=== PATIENT | male | born 1940 | race Caucasian/White ===

== ENCOUNTER 2019-09-11 10:32 | Outpatient (CLI) | payer MEDICARE, SELFPAY ==
[2019-09-11 11:25] LABS: Prostate Specific Antigen 0.64 ng/mL (0-4)
[2019-09-11 11:48] LABS: Testosterone Total 351.3 ng/dL (193-740)
[2019-09-15 13:02] LABS: Testosterone, Free 37.5 pg/mL (6.0-73.0)
== END 2019-09-11 10:33 | disposition home or self-care (01) ==
LOC: LAB 10:37
PROVIDERS: Visit Provider Nurse Practitioner Family
DX: N52.9 Male erectile dysfunction, unspecified (principal)
CPT/HCPCS: 36415; 84153; 84402; 84403

== ENCOUNTER → 2019-11-24 09:21 | Outpatient (BNVA) | payer MEDICARE, SELFPAY | PROVIDERS: PCP Nurse Practitioner Family; Visit Provider Urology | DX: N52.9 Male erectile dysfunction, unspecified (principal); N39.9 Disorder of urinary system, unspecified | CPT/HCPCS: 81001 ==

== ENCOUNTER → 2020-02-23 15:10 | Outpatient (BNVA) | payer MEDICARE, SELFPAY | PROVIDERS: PCP Nurse Practitioner Family; Visit Provider Urology | DX: N52.1 Erectile dysfunction due to diseases classified elsewhere (principal); Z98.890 Other specified postprocedural states | CPT/HCPCS: 81001 ==

== ENCOUNTER 2020-03-18 18:48 | Emergency (ER) | payer MEDICARE, SELFPAY ==
[2020-03-18 18:50] VITALS: BP 161/98; PULSE 79; RESP 18; TEMP 36.7; O2SAT 96; BMI 26.5
--- NOTE | 2020-03-18 18:56 | CTR_ITS ---
PROCEDURE INFORMATION: Exam: CT Cervical Spine Without Contrast Exam date and time: 03/18/2020 7:18 PM Age: 80 years old Clinical indication: Injury or trauma; Initial encounter; Blunt trauma; Patient HX: 2x falls C/O KEENE and R sided neck pain TECHNIQUE: Imaging protocol: Computed tomography images of the cervical spine without contrast. Radiation optimization: All CT scans at this facility use at least one of these dose optimization techniques: automated exposure control; mA and/or kV adjustment per patient size (includes targeted exams where dose is matched to clinical indication); or iterative reconstruction. COMPARISON: MRI Cervical Spine w/o* [id number] 2015-10-19 09:24 RADIATION DOSE METRICS: Total DLP (mGy-cm): 662.09 FINDINGS: Vertebrae: Degenerative C7-T1 minimal anterolisthesis. Maintained cervical vertebral body heights. Fusion across the C2-C3 facets. Discs/Spinal canal/Neural foramina: Diffuse degenerative disc space loss with degenerative disc osteophyte complexes, facet arthropathy, and ligamentum flavum thickening causes up to moderate spinal and foraminal stenosis greatest at C4-C7. Soft tissues: Unremarkable. Lungs: Lung apices are normal. CT/CT cervical spin wo con* [id number] IMPRESSION: No acute findings. Radiation Dose CTDIVOL = (mGy): DLP = 662.09 (mGy-cm)
--- NOTE | 2020-03-18 18:56 | CTR_ITS ---
PROCEDURE INFORMATION: Exam: CT Head Without Contrast Exam date and time: 03/18/2020 7:18 PM Age: 80 years old Clinical indication: Injury or trauma; Initial encounter; Blunt trauma (contusions or hematomas); Without loss of consciousness; Patient HX: 2x falls C/O KEENE and R sided neck pain TECHNIQUE: Imaging protocol: Computed tomography of the head without contrast. Radiation optimization: All CT scans at this facility use at least one of these dose optimization techniques: automated exposure control; mA and/or kV adjustment per patient size (includes targeted exams where dose is matched to clinical indication); or iterative reconstruction. COMPARISON: CT head wo con* [id number] 2016-03-09 13:53 RADIATION DOSE METRICS: Total DLP (mGy-cm): 891.32 FINDINGS: Brain: Diffuse mild cerebral age related volume loss. Mild patchy low attenuation in the white matter compatible with mild chronic small vessel ischemic disease. No midline shift, mass, fluid collection, or evidence of hemorrhage. Ventricles: Ventricular enlargement proportional to volume loss. Bones/joints: Unremarkable. No acute fracture. Sinuses: Visualized sinuses are unremarkable. No fluid levels. Mastoid air cells: Visualized mastoid air cells are well aerated. Orbits: Unilateral right-sided cataract surgical changes. Left globe prosthesis. Soft tissues: Unremarkable. CT/CT head wo con* [id number] IMPRESSION: Mild involutional changes, no acute intracranial abnormality. Radiation Dose CTDIVOL = (mGy): DLP = 891.32 (mGy-cm)
--- NOTE | 2020-03-18 18:56 | CTR_ITS ---
PROCEDURE INFORMATION: Exam: CT Chest With Contrast Exam date and time: 03/18/2020 7:18 PM Age: 80 years old Clinical indication: Injury or trauma; Initial encounter; Ruq; Blunt trauma (contusions or hematomas); Patient HX: 2x falls C/O KEENE and R sided chest and abd pain TECHNIQUE: Imaging protocol: Computed tomography of the chest with intravenous contrast. Radiation optimization: All CT scans at this facility use at least one of these dose optimization techniques: automated exposure control; mA and/or kV adjustment per patient size (includes targeted exams where dose is matched to clinical indication); or iterative reconstruction. Contrast material: OMNI 300; Contrast volume: 95 ml; Contrast route: INTRAVENOUS (IV); COMPARISON: No relevant prior studies available. RADIATION DOSE METRICS: Total DLP (mGy-cm): 1511.06 FINDINGS: Lungs: Right apical pulmonary wedge resection. Pleural space: Right lung base pleural plaque. Heart: Unremarkable. No cardiomegaly. No pericardial effusion. Aorta: Unremarkable. No aortic aneurysm. Lymph nodes: Unremarkable. No enlarged lymph nodes. Bones/joints: Mild to moderate thoracic spondylosis with exaggeration of the thoracic kyphosis and associated degenerative endplate spurring and disc space loss. Hairline nondisplaced right lateral 8-10th rib fractures . Subtle nondisplaced right anterior 5-7th incomplete rib fractures. Soft tissues: Unremarkable. IMPRESSION: 1. Hairline nondisplaced right lateral 8-10th rib fractures . 2. Subtle nondisplaced right anterior 5-7th incomplete rib fractures. 3. Right lung base pleural plaque. PROCEDURE INFORMATION: Exam: CT Abdomen And Pelvis With Contrast Exam date and time: 03/18/2020 7:18 PM Age: 80 years old Clinical indication: Injury or trauma; Initial encounter; Ruq; Blunt trauma (contusions or hematomas); Patient HX: 2x falls C/O KEENE and R sided chest and abd pain TECHNIQUE: Imaging protocol: Computed tomography of the abdomen and pelvis with intravenous contrast. Radiation optimization: All CT scans at this facility use at least one of these dose optimization techniques: automated exposure control; mA and/or kV adjustment per patient size (includes targeted exams where dose is matched to clinical indication); or iterative reconstruction. Contrast material: OMNI 300; Contrast volume: 95 ml; Contrast route: INTRAVENOUS (IV); COMPARISON: No relevant prior studies available. RADIATION DOSE METRICS: Total DLP (mGy-cm): 1511.06 FINDINGS: Liver: 2 cm left hepatic lobe liver dome cyst. Gallbladder and bile ducts: Cholelithiasis. Pancreas: Normal. No ductal dilation. Spleen: Normal. No splenomegaly. Adrenals: Normal. No mass. Kidneys and ureters: Benign 4.5 cm left superior renal pole cyst. Nonobstructing 4 mm right renal calculus. Stomach and bowel: Mild colonic diverticulosis without evidence for acute diverticulitis. Appendix: No evidence of appendicitis. Intraperitoneal space: Unremarkable. No free air. No significant fluid collection. Vasculature: Unremarkable. No abdominal aortic aneurysm. Lymph nodes: Unremarkable. No enlarged lymph nodes. Bladder: Unremarkable as visualized. Reproductive: Unremarkable as visualized. Bones/joints: Couple chronic left-sided transverse spinous process fractures. Soft tissues: Small right inguinal fat protruding hernia. CT/CT chest abd pel w con* IMPRESSION: 1. Cholelithiasis. 2. Nonobstructing 4 mm right renal calculus. 3. Mild colonic diverticulosis without evidence for acute diverticulitis. COMMENTS: Consistent with the [employer]'s Incidental Findings Committee white paper (J Am Alo Radiol 2018): Any incidental renal lesion less than 1.0 cm or classified as too small to characterize, or any incidental cystic renal lesion characterized as simple-appearing, is likely benign. No follow-up imaging is recommended for these lesions per consensus recommendations based on imaging criteria. Radiation Dose CTDIVOL = (mGy): DLP = 1511.06~1511.06 (mGy-cm)
--- NOTE | 2020-03-18 18:57 | XRR_ITS ---
PROCEDURE INFORMATION: Exam: XR Chest, 1 View Exam date and time: 03/18/2020 6:58 PM Age: 80 years old Clinical indication: Injury or trauma; Fall; Initial encounter; Blunt trauma (contusions or hematomas) TECHNIQUE: Imaging protocol: XR of the chest Views: 1 view. COMPARISON: [place] Chest 1 [place] [id number] 2018-09-24 14:51 FINDINGS: Lungs: Unremarkable. No consolidation. Pleural space: Unremarkable. No pleural effusion. No pneumothorax. Heart/Mediastinum: Unremarkable. No cardiomegaly. Bones/joints: Unremarkable. XR/XR chest 1V portable [id number] IMPRESSION: No acute findings.
--- NOTE | 2020-03-18 19:04 | W.ED.FALL ---
HPI - Fall General: Chief Complaint: Fall Stated Complaint: FALL/ R SIDE PAIN Time Seen by Provider: 03/18/20 18:52 Source: patient, family and EMS Mode of arrival: EMS Limitations: no limitations History of Present Illness: HPI Narrative: Mr. Judd is a very nice 80-year-old male who comes in complaining of right-sided chest and abdominal pain. He also complains of headache and neck pain. The patient stumbled and fell landing on his right side earlier today. He is uncertain whether he had loss of consciousness but he states it is a possibility. He states he did not pass out before it but loses his balance easily with his Parkinson's disease. His confirms this. The patient has been trying to use a wrap around his chest but has pain in his chest and abdomen. He also has pain in his head and neck. He denies being on any blood thinners. Any type of movement makes his symptoms worse sitting still and the wrap makes them better. He denies any injuries to his extremities. He otherwise has no complaints. Associated symptoms-after fall: Reports abdominal pain, chest pain, headache(s) and neck pain; Denies confusion, difficulty walking, hematuria, lightheadedness or vertigo Review of Systems Const: Denies: fever(s), chills, body aches, fatigue, malaise or diaphoresis Eyes: Denies: change in vision, blurry vision, photophobia, eye discomfort, eye discharge or eye redness ENMT: Denies: throat pain, odynophagia, hoarseness, swelling of lips/tongue, ear or mastoid pain, ear discharge, change in hearing or nasal discharge Card: Reports: chest pain; Denies: palpitations, irregular heart rhythm, edema, lightheadedness, syncope, pre-syncope, dyspnea on exertion or orthopnea Resp: Denies: dyspnea, productive cough, non-productive cough, wheezing, hemoptysis or chest congestion GI: Reports: abdominal pain; Denies: nausea, vomiting, hematemesis, coffee ground emesis, heartburn, diarrhea, constipation, GI cramping, hematochezia or melena : Denies: flank pain, dysuria, urinary frequency, urinary urgency or hematuria Musc: Reports: neck pain; Denies: back pain, extremity pain, extremity swelling, joint pain, joint swelling, joint redness, joint warmth or joint stiffness Skin/Breast: Denies: rash, pruritus, erythema or skin tenderness Neuro: Reports: headache(s); Denies: numbness in extremities, weakness in extremities, sensory changes, lack of coordination, difficulty walking, dizziness, vertigo, confusion, Slurred speech present or seizure-like activity Vaughn/Lymph: Denies: easy bruising, easy bleeding, petechiae, purpura or enlarged lymph nodes All/Imm: Denies: urticaria, throat swelling, tongue swelling, facial swelling or acute wheezing PFSH ED PFSH: Medical History Blindness Detached retina Erectile dysfunction Parkinson disease Stroke Surgical History H/O transurethral destruction of bladder lesion Family History Father , 70 CAD (coronary artery disease) Stroke Mother , 84 Stroke Social History Smoking and tobacco status: former smoker Alcohol intake: never Marital status: Life Partner Current occupational status: retired History of recent travel: No Physical Exam Const: COMMON NORMALS: no acute distress, patient oriented x3, no limitations, healthy appearing and well nourished GENERAL APPEARANCE: cooperative, well kempt and well developed HENMT: COMMON NORMALS: normocephalic, atraumatic, external ears normal, EAC's normal and Normal external nose present HEAD & SCALP: normal to inspection, normocephalic and atraumatic FACE & SINUS: normal facial exam and face symmetric NOSE: Normal external nose present and Normal nares present EXTERNAL EAR: Yes external ears normal EXTERNAL AUDITORY CANAL: EAC's normal MOUTH: Normal oral and palatal mucosa present, lip normal and tongue normal Eye: COMMON NORMALS: Equal, round and reactive pupils present and conjunctivae normal GENERAL EYE: appearance normal, both eyes and all related structures ALIGNMENT: Yes alignment normal PERIORBITAL: periorbital findings normal EYELID: eyelids normal CONJUNCTIVA: Yes conjunctivae normal SCLERA: sclerae normal PUPIL: Yes Equal, round and reactive pupils present Neck/C-Spine: COMMON NORMALS: full ROM, no lymphadenopathy, supple, no meningeal signs and no JVD GENERAL: Yes normal visual inspection and Yes trachea midline Chest: OTHER: Tenderness to palpation along the right lateral chest and upper abdomen Resp: COMMON NORMALS: normal respiratory effort, No retractions, No use of accessory muscles and clear to auscultation bilaterally EFFORT & INSPECTION: Yes able to speak in complete sentences and Yes symmetric chest movement AUSCULTATION: clear to auscultation bilaterally, no crackles, no rales, no rhonchi and no wheezes Cardio: COMMON NORMALS: no JVD, regular rate, regular rhythm, S1 normal heart sound present and S2 normal heart sound present RATE: regular rate RHYTHM: regular rhythm HEART SOUNDS: S1 normal heart sound present, S2 normal heart sound present, no click, no gallops, no murmurs, no rubs and abnormal split S2 GI: COMMON NORMALS: Soft to palpation and No hepatosplenomegaly present PALPATION: Yes Soft to palpation, Yes Tenderness to palpation present (GI) (Pain on palpation along the right abdomen.), No Guarding due to palpation present (GI), No Rigid due to palpation, Yes No hepatosplenomegaly present, No Hernia present, No Palpable mass present and No Pulsatile mass present : COMMON NORMALS: Yes no CVA tenderness BLADDER/KIDNEY EXAM: Yes no CVA tenderness Back/Pelvis: COMMON NORMALS: no CVA tenderness, thoracic and lumbar spine normal to inspection, no thoracic nor lumbar tenderness and thoraco-lumbar ROM normal Extremity: COMMON NORMALS: normal to inspection, full ROM, capillary refill normal, no joint enlargement, no clubbing, cyanosis or edema and no calf tenderness Neuro: COMMON NORMALS: patient oriented x3, CN's II-XII intact bilaterally, moves all extremities, no focal motor deficits and no sensory deficits noted MENINGEAL SIGNS: Yes no meningeal signs SPEECH: speech normal Psych: COMMON NORMALS: mental status grossly normal, Normal thought process present, cooperative, normal affect, speech normal and activity/motor behavior normal APPEARANCE: Yes well kempt SPEECH: Yes normal speech THOUGHT PROCESS: Normal thought process present Skin: COMMON NORMALS: no rashes or lesions noted, turgor normal, no jaundice, no petechiae and no mottling GENERAL SKIN EXAM: no rashes or lesions noted and turgor normal Course Vital Signs: Vital signs: Vital Signs Temperature 98.1 F 03/18/20 18:50 Pulse Rate 72 08/14/20 23:31 Respiratory Rate 16 03/18/20 23:31 Blood Pressure 140/91 03/18/20 23:31 Pulse Oximetry 95 03/18/20 23:31 MDM - Fall MDM Narrative: Medical decision making narrative: Mr. Judd is a nice 80-year-old male who comes in complaining of chest and abdominal pain after a fall. The patient has 6 rib fractures but not in a flail type segment. There is no sign of flail segment on exam. His pain is well controlled at this time and the rib fractures themselves are not displaced. I have reviewed with him and his at length the risks of complication and this being a risk factor for problems from this trauma. Nonetheless they choose to go home. I will send him home with an incentive spirometer, [employer] and they agree to follow-up with her doctor immediately. They state they live very close by to the hospital and will return here immediately if their symptoms worsen. They understand they are welcome to return if they simply change their mind. Lab Data: Attestation: I reviewed the patient's lab results. Labs: Lab Results 03/18/20 03/18/20 03/18/20 Range/Units 19:01 19:01 19:01 WBC 7.4 (4.0-10.0) 10^3/ uL RBC 4.82 (4.1-5.3) 10^6/u L Hgb 14.0 (11.7-16.6) g/dL Hct 45.6 (42.0-52.0) % MCV 94.6 H (80-94) fL MCH 29.0 (28.0-34.0) pg MCHC 30.7 (30.0-36.0) g/dL RDW 13.5 (12.1-15.1) % Plt Count 218 (130-400) 10^3/c mm MPV 9.7 (7.4-10.4) fL Neut % (Auto) 57.9 % Lymph % (Auto) 31.0 % Gosper % (Auto) 7.2 % Eos % (Auto) 3.1 % Baso % (Auto) 0.5 % Neut # (Auto) 4.25 (1.8-7.7) 10^3/u L Lymph # (Auto) 2.3 (0.8-4.8) 10^3/u L Gosper # (Auto) 0.5 (0.2-0.9) 10^3/u L Eos # (Auto) 0.2 (0.0-0.8) 10^3/u L Baso # (Auto) 0.0 (0.0-0.1) 10^3/u L Nucleated RBC % (a uto) 0 % Nucleated RBCs # 0.0 /100WBC PT 12.20 (12.1-14.9) SECO NDS INR 0.88 (0.8-1.2) Sodium 138 (136-145) mmol/L Potassium 4.3 (3.5-5.1) mmol/L Chloride 104 (98-107) mmol/L Carbon Dioxide 27 (22-29) mmol/L Anion Gap 11.3 (5-19) BUN 20 (8-23) mg/dL Creatinine 1.0 (0.7-1.2) mg/dL GFR Calculation Not Reportable Glucose 129 H (65-115) mg/dL Calculated Osmolal ity 284 L (285-295) mOsm/k g Calcium 9.0 (8.5-10.5) mg/dL Total Bilirubin 0.2 (0.15-1.2) mg/dL AST 20 (0-40) U/L ALT 15 (0-41) U/L Alkaline Phosphata se 79 (40-130) IU/L Total Protein 6.9 (6.6-8.7) g/dL Albumin 4.2 (3.5-5.2) g/dL Globulin 2.7 (1.3-4.6) g/dL Urine Color (Yellow) Urine Appearance (CLEAR) Urine pH (5-7) Ur Specific Gravit y (1.005-1.030) Urine Protein (Negative) Urine Glucose (UA) (Normal) Urine Ketones (Negative) Urine Blood (Negative) Urine Nitrate (Negative) Urine Bilirubin (NEGATIVE) Urine Urobilinogen (Negative) mg/dL Ur Leukocyte Naomi ase (Negative) 03/18/20 Range/Units 20:35 WBC (4.0-10.0) 10^3/ uL RBC (4.1-5.3) 10^6/u L Hgb (11.7-16.6) g/dL Hct (42.0-52.0) % MCV (80-94) fL MCH (28.0-34.0) pg MCHC (30.0-36.0) g/dL RDW (12.1-15.1) % Plt Count (130-400) 10^3/c mm MPV (7.4-10.4) fL Neut % (Auto) % Lymph % (Auto) % Gosper % (Auto) % Eos % (Auto) % Baso % (Auto) % Neut # (Auto) (1.8-7.7) 10^3/u L Lymph # (Auto) (0.8-4.8) 10^3/u L Gosper # (Auto) (0.2-0.9) 10^3/u L Eos # (Auto) (0.0-0.8) 10^3/u L Baso # (Auto) (0.0-0.1) 10^3/u L Nucleated RBC % (a uto) % Nucleated RBCs # /100WBC PT (12.1-14.9) SECO NDS INR (0.8-1.2) Sodium (136-145) mmol/L Potassium (3.5-5.1) mmol/L Chloride (98-107) mmol/L Carbon Dioxide (22-29) mmol/L Anion Gap (5-19) BUN (8-23) mg/dL Creatinine (0.7-1.2) mg/dL GFR Calculation Glucose (65-115) mg/dL Calculated Osmolal ity (285-295) mOsm/k g Calcium (8.5-10.5) mg/dL Total Bilirubin (0.15-1.2) mg/dL AST (0-40) U/L ALT (0-41) U/L Alkaline Phosphata se (40-130) IU/L Total Protein (6.6-8.7) g/dL Albumin (3.5-5.2) g/dL Globulin (1.3-4.6) g/dL Urine Color Yellow (Yellow) Urine Appearance Clear (CLEAR) Urine pH 6 (5-7) Ur Specific Gravit y 1.015 (1.005-1.030) Urine Protein Neg (Negative) Urine Glucose (UA) Norm (Normal) Urine Ketones Negative (Negative) Urine Blood Neg (Negative) Urine Nitrate Negative (Negative) Urine Bilirubin Neg (NEGATIVE) Urine Urobilinogen Norm (Negative) mg/dL Ur Leukocyte Naomi ase Negative (Negative) Imaging Data^: CXR: Attestation: I personally reviewed and interpreted this imaging study as follows: My impression: No acute pneumothorax or hemothorax. Evidence of 2 adjacent rib fractures noted. CT Head: Radiologist's impression: [address] [address] [address] Scan Report Signed Patient: Ariana Judd Unit #: [id number] : 1940 Age/Sex: 80 / M ADM Date: 03/18/20 Loc: ER Room/Bed: Attending Dr: Ordering Provider/Ordering MD: Naomy Michel DO Date of Service: 03/18/20 Procedure(s): CT head wo con* [id number] Accession Number(s): [id number] Report Number: [id number] PROCEDURE INFORMATION: Exam: CT Head Without Contrast Exam date and time: 03/18/2020 7:18 PM Age: 80 years old Clinical indication: Injury or trauma; Initial encounter; Blunt trauma (contusions or hematomas); Without loss of consciousness; Patient HX: 2x falls C/O KEENE and R sided neck pain TECHNIQUE: Imaging protocol: Computed tomography of the head without contrast. Radiation optimization: All CT scans at this facility use at least one of these dose optimization techniques: automated exposure control; mA and/or kV adjustment per patient size (includes targeted exams where dose is matched to clinical indication); or iterative reconstruction. COMPARISON: CT head wo con* [id number] 2016-03-09 13:53 RADIATION DOSE METRICS: Total DLP (mGy-cm): 891.32 FINDINGS: Brain: Diffuse mild cerebral age related volume loss. Mild patchy low attenuation in the white matter compatible with mild chronic small vessel ischemic disease. No midline shift, mass, fluid collection, or evidence of hemorrhage. Ventricles: Ventricular enlargement proportional to volume loss. Bones/joints: Unremarkable. No acute fracture. Sinuses: Visualized sinuses are unremarkable. No fluid levels. Mastoid air cells: Visualized mastoid air cells are well aerated. Orbits: Unilateral right-sided cataract surgical changes. Left globe prosthesis. Soft tissues: Unremarkable. CT/CT head wo con* [id number] IMPRESSION: Mild involutional changes, no acute intracranial abnormality. Radiation Dose CTDIVOL = (mGy): DLP = 891.32 (mGy-cm) Dictated By: Zach Hernandes MD Signed By: Zach Hernandes MD Signed Date/Time: 03/18/202019 DD/ 17 CT Cervical Spine: Radiologist's impression: [address] [address] [address] Scan Report Signed Patient: Ariana Judd Unit #: [id number] : 1940 Age/Sex: 80 / M ADM Date: 03/18/20 Loc: ER Room/Bed: Attending Dr: Ordering Provider/Ordering MD: Naomy Michel DO Date of Service: 03/18/20 Procedure(s): CT cervical spin wo con* [id number] Accession Number(s): [id number] Report Number: [id number] PROCEDURE INFORMATION: Exam: CT Cervical Spine Without Contrast Exam date and time: 03/18/2020 7:18 PM Age: 80 years old Clinical indication: Injury or trauma; Initial encounter; Blunt trauma; Patient HX: 2x falls C/O KEENE and R sided neck pain TECHNIQUE: Imaging protocol: Computed tomography images of the cervical spine without contrast. Radiation optimization: All CT scans at this facility use at least one of these dose optimization techniques: automated exposure control; mA and/or kV adjustment per patient size (includes targeted exams where dose is matched to clinical indication); or iterative reconstruction. COMPARISON: MRI Cervical Spine w/o* [id number] 2015-10-19 09:24 RADIATION DOSE METRICS: Total DLP (mGy-cm): 662.09 FINDINGS: Vertebrae: Degenerative C7-T1 minimal anterolisthesis. Maintained cervical vertebral body heights. Fusion across the C2-C3 facets. Discs/Spinal canal/Neural foramina: Diffuse degenerative disc space loss with degenerative disc osteophyte complexes, facet arthropathy, and ligamentum flavum thickening causes up to moderate spinal and foraminal stenosis greatest at C4-C7. Soft tissues: Unremarkable. Lungs: Lung apices are normal. CT/CT cervical spin wo con* [id number] IMPRESSION: No acute findings. Radiation Dose CTDIVOL = (mGy): DLP = 662.09 (mGy-cm) Dictated By: Zach Hernandes MD Signed By: Zach Hernandes MD Signed Date/Time: 03/18/202020 DD/ 18 Discharge Plan Discharge Patient Disposition: Home Clinical Impression: Fracture, ribs Qualifiers: Encounter type: initial encounter Rib fracture type: multiple ribs Fracture type: closed Laterality: right Qualified Code(s): S22.41XA - Multiple fractures of ribs, right side, initial encounter for closed fracture Condition: Stable Prescriptions: [place] 5-325 mg tablet 1 tab PO Q6H PRN (Reason: pain) 5 Days Qty: 20 RF: 0 Zofran 4 mg tablet 4 mg PO Q6H PRN (Reason: nausea and vomiting) Qty: 20 RF: 0 No Action Ocuvite Eye Health 50 mg-15 unit- 4.5 mg-2.5 mg tablet,chewable 2 tab PO DAILY RF: 0 topiramate 50 mg capsule,extended release 24hr 50 mg PO DAILY RF: 0 PreserVision AREDS [id number] capsule 1 cap PO BID RF: 0 naproxen sodium 220 mg capsule 220 mg PO BID PRN (Reason: Pain) RF: 0 aspirin [Adult Aspirin Regimen] 81 mg tablet,delayed release (DR/EC) 81 mg PO DAILY RF: 0 gabapentin 300 mg capsule 300 mg PO DAILY RF: 0 omeprazole 20 mg capsule,delayed release(DR/EC) 20 mg PO DAILY RF: 0 prednisolone 5 mg tablet 5 mg PO DAILY RF: 0 venlafaxine 150 mg capsule,extended release 24hr 150 mg PO DAILY RF: 0 zinc 50 mg tablet 50 mg PO DAILY RF: 0 vitamin E 200 unit capsule 200 unit PO DAILY RF: 0 carbidopa-levodopa 25-100 mg tablet 1 tab PO BID RF: 0 Combigan 0.2-0.5 % drops 1 drop ophthalmic (eye) BID RF: 0 sildenafil 100 mg tablet 100 mg PO DAILY PRN (Reason: sexual activity) Qty: 30 RF: 12 clonazepam 1 mg tablet 1 mg PO DAILY Qty: 30 RF: 2 Discharge Orders: Discharge Order (Routine); Ordered 03/18/20 Ordered By: Naomy Michel Referrals: Kulwinder Lane NP [Primary Care Provider] - 1-3 days Discharge Diet: Advance as tolerated Discharge Activity: Limit activity as instructed Patient Instructions: Fractures - Rib Activity Restrictions/Additional Instructions: Please return to the ER immediately for any of the signs or symptoms listed on your discharge instruction sheets, worsening/changing of your symptoms, you are not getting better as quickly as expected, or for ANY other cause or concerns. I have offered to admit you to the hospital as I have informed you that multiple rib fractures can be a complicating factor and preclude to pneumonia and other problems. You have declined this but understand you are more than welcome to return to the ER if your pain is uncontrolled, your pain gets worse, you simply change your mind, or you have any other concerns. Use the incentive spirometer given you and use it every hour while you are home. Be certain to follow-up with Mr. Ron on Saturday for recheck. Again if you have any symptoms at all please return to the ER immediately for recheck. 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
[2020-03-18 19:08] LABS: Basophils % 0.5 %; Eosinophils # 0.2 10^3/uL (0.0-0.8); Eosinophils % 3.1 %; Hematocrit 45.6 % (42.0-52.0); Lymphocytes # 2.3 10^3/uL (0.8-4.8); Mean Corpuscular HGB Conc 30.7 g/dL (30.0-36.0); Mean Corpuscular Volume 94.6 fL (80-94); Mean Platelet Volume 9.7 fL (7.4-10.4); Monocytes # 0.5 10^3/uL (0.2-0.9); Monocytes % 7.2 %; Neutrophils # 4.25 10^3/uL (1.8-7.7); Neutrophils % 57.9 %; Nucleated Red Blood Cells % 0 %; Platelet Count 218 10^3/cmm (130-400); Red Blood Count 4.82 10^6/uL (4.1-5.3); Red Cell Distribution Width 13.5 % (12.1-15.1); White Blood Count 7.4 10^3/uL (4.0-10.0)
[2020-03-18] MEDS: sodium chloride 0.9% 1,000 ML 999 ML IV (19:19)
[2020-03-18 19:20] VITALS: RESP 16; O2SAT 97
[2020-03-18 19:20] LABS: INR 0.88 (0.8-1.2)
[2020-03-18] MEDS: ondansetron 2 mg/ML SDV 2 mL 4 MG IVP (19:20)
[2020-03-18] MEDS: morphine 4 mg/mL SDV 1 mL IVP ×2 (19:20→23:28)
[2020-03-18 19:25] LABS: Alanine Aminotransferase 15 U/L (0-41); Albumin Level 4.2 g/dL (3.5-5.2); Alkaline Phosphatase 79 IU/L (40-130); Anion Gap 11.3 (5-19); Aspartate Amino Transferase 20 U/L (0-40); Blood Urea Nitrogen 20 mg/dL (8-23); Carbon Dioxide 27 mmol/L (22-29); Chloride 104 mmol/L (98-107); Globulin 2.7 g/dL (1.3-4.6); Glucose 129 mg/dL (65-115); Osmolality Calculated 284 mOsm/kg (285-295); Potassium 4.3 mmol/L (3.5-5.1); Sodium 138 mmol/L (136-145); Total Bilirubin 0.2 mg/dL (0.15-1.2); Total Protein 6.9 g/dL (6.6-8.7)
[2020-03-18 19:26] VITALS: BP 135/82; PULSE 71; RESP 16; O2SAT 95
[2020-03-18] MEDS: iohexol 300 mg/mL 100 mL Btl IV (19:56)
[2020-03-18 20:00] VITALS: BP 124/94; PULSE 65; RESP 16; O2SAT 95
[2020-03-18] MEDS: sodium chloride 0.9% 1,000 ML 100 ML IV (20:51)
[2020-03-18 20:55] LABS: Add Urine Microscopic? NO
[2020-03-18 20:59] LABS: Bilirubin Urine Neg (NEGATIVE); Blood Urine Neg (Negative); Glucose Urine UA Norm (Normal); Ketones Urine Negative (Negative); Leukocyte Esterase Urine Negative (Negative); Nitrate Urine Negative (Negative); Protein Urine Neg (Negative); Specific Gravity, Urine 1.015 (1.005-1.030); Urine Appearance Clear (CLEAR); Urine Color Yellow (Yellow); Urobilinogen Urine Norm (Negative); pH Urine 6 (5-7)
[2020-03-18] MEDS: HYDROcodone-acetaminophen 5-325 mg Tablet 4 TAB PO (23:27)
[2020-03-18 23:28] VITALS: RESP 16
[2020-03-18 23:31] VITALS: BP 140/91; PULSE 72; RESP 16; O2SAT 95
== END 2020-03-18 23:42 | disposition home or self-care (01) ==
PROVIDERS: Emergency Provider Emergency Medicine; PCP Nurse Practitioner Family
DX: S22.41XA Multiple fractures of ribs, right side, initial encounter for closed fracture (principal); Z79.82 Long term (current) use of aspirin; G20 Parkinson's disease; Z86.73 Personal history of transient ischemic attack (TIA), and cerebral infarction without residual deficits; Z87.891 Personal history of nicotine dependence; W01.0XXA Fall on same level from slipping, tripping and stumbling without subsequent striking against object, initial encounter
CPT/HCPCS: 12345; 36415; 70450; 71045; 71260; 72125; 74177; 80053; 81003; 85025; 85610; 96360; 96361; 96374; 96375; 96376; 99283; 99284; J2270; J2405; J7030; Q9967

== ENCOUNTER 2020-07-06 12:00 | Outpatient (CLI) | payer MEDICARE, SELFPAY ==
--- NOTE | 2020-07-06 12:17 | XR_ITS ---
WS: [id number] Lumbar spine, 3 views, 07/06/2020 Clinical Data: LOW BACK PAIN Comparison: Lumbar spine, 03/25/2015. Findings: There is an anterolisthesis of 0.4 cm of L4 on L5 unchanged. There is disc space narrowing at L4-L5 a nd L5-S1. No compression fractures are seen. There is a dextroscoliosis. The transverse processes and SI joints are normal. There is a large amount of fecal material throughout the colon. XR/XR lumbar spine 2-3V* [id number] Impression: 1. Dextroscoliosis. 2. L4-L5 anterolisthesis is 0.4 cm. 3. Degenerative disc disease at L4-L5 and L5-S1.
--- NOTE | 2020-07-06 12:17 | XR_ITS ---
WS: [id number] Left hip, AP and frog-leg views, 07/06/2020 Clinical Data: LEFT HIP PAIN Comparison: None. Findings: No fractures or dislocations are seen. The hip joint is intact. The soft tissues are not remarkable. The adjacent pelvis is normal. The left SI joint and pubic symphysis are not remarkable. XR/XR hip LT 2-3V wo/w pel* [id number] Impression: Negative left hip.
== END 2020-07-06 12:01 | disposition home or self-care (01) ==
PROVIDERS: PCP Nurse Practitioner Family; Visit Provider Nurse Practitioner Family
DX: M25.552 Pain in left hip (principal); M41.86 Other forms of scoliosis, lumbar region; M51.36 Other intervertebral disc degeneration, lumbar region; M51.37 Other intervertebral disc degeneration, lumbosacral region
CPT/HCPCS: 72100; 73502

== ENCOUNTER 2020-11-28 10:34 | Outpatient (CLI) | payer MEDICARE, SELFPAY ==
--- NOTE | 2020-11-28 10:42 | XR_ITS ---
WS: [id number] Exam: XR shoulder RT min 2V* [id number] Date/Time of Exam: 11/28/2020 10:42 AM Reason For Exam: RIGHT SHOULDER PAIN Comparison 04/08/2014. No fracture or dislocation noted. Degenerative changes of the glenohumeral joint. Normal soft tissues . Surgical sutures superimpose the apex of the left lung. XR/XR shoulder RT min 2V* [id number] IMPRESSION: 1. Degenerative change of the glenohumeral joint. No other significant finding.
== END 2020-11-28 10:35 | disposition home or self-care (01) ==
PROVIDERS: PCP Nurse Practitioner Family; Visit Provider Internal Medicine
DX: M25.511 Pain in right shoulder (principal)
CPT/HCPCS: 73030

== ENCOUNTER → 2020-12-07 15:03 | Outpatient (BNVA) | payer MEDICARE, SELFPAY | PROVIDERS: PCP Nurse Practitioner Family; Visit Provider Specialist | DX: I69.354 Hemiplegia and hemiparesis following cerebral infarction affecting left non-dominant side (principal); R27.0 Ataxia, unspecified; G62.9 Polyneuropathy, unspecified; M31.6 Other giant cell arteritis; G43.711 Chronic migraine without aura, intractable, with status migrainosus; H54.7 Unspecified visual loss; Z87.891 Personal history of nicotine dependence; R20.0 Anesthesia of skin; R20.2 Paresthesia of skin | CPT/HCPCS: 36415; 80053; 82607; 84443; 85025; 99215 ==

== ENCOUNTER 2020-12-07 16:39 | Outpatient (CLI) | payer MEDICARE, SELFPAY ==
[2020-12-07 17:05] LABS: Basophils % 0.2 %; Eosinophils % 0.3 %; Hematocrit 43.7 % (42.0-52.0); Hemoglobin 13.9 g/dL (11.7-16.6); Lymphocytes # 2.2 10^3/uL (0.8-4.8); Lymphocytes % 16.6 %; Mean Corpuscular HGB Conc 31.8 g/dL (30.0-36.0); Mean Corpuscular Volume 91.2 fL (80-94); Mean Platelet Volume 9.4 fL (7.4-10.4); Monocytes # 0.8 10^3/uL (0.2-0.9); Monocytes % 6.4 %; Neutrophils # 9.97 10^3/uL (1.8-7.7); Nucleated Red Blood Cells % 0 %; Platelet Count 233 10^3/cmm (130-400); Red Blood Count 4.79 10^6/uL (4.1-5.3); Red Cell Distribution Width 14.5 % (12.1-15.1); White Blood Count 13.1 10^3/uL (4.0-10.0)
[2020-12-07 17:59] LABS: Alanine Aminotransferase 15 U/L (0-41); Albumin Level 4.2 g/dL (3.5-5.2); Alkaline Phosphatase 98 IU/L (40-130); Anion Gap 14.3 (5-19); Aspartate Amino Transferase 16 U/L (0-40); Blood Urea Nitrogen 20 mg/dL (8-23); Calcium 9.2 mg/dL (8.5-10.5); Carbon Dioxide 23 mmol/L (22-29); Chloride 105 mmol/L (98-107); Globulin 2.5 g/dL (1.3-4.6); Glucose 103 mg/dL (65-115); Osmolality Calculated 289 mOsm/kg (285-295); Potassium 4.3 mmol/L (3.5-5.1); Sodium 138 mmol/L (136-145); Total Bilirubin 0.3 mg/dL (0.15-1.2); Total Protein 6.7 g/dL (6.6-8.7); Vitamin B12 852 pg/mL (232-1245)
[2020-12-07 19:44] LABS: Thyroid Stimulating Hormone 0.47 uIU/mL (0.27-4.20)
== END 2020-12-07 16:40 | disposition home or self-care (01) ==
PROVIDERS: PCP Internal Medicine; Visit Provider Specialist
DX: R27.0 Ataxia, unspecified (principal); R20.0 Anesthesia of skin; R20.2 Paresthesia of skin
CPT/HCPCS: 36415; 80053; 82607; 84443; 85025

== ENCOUNTER 2020-12-21 10:47 | Outpatient (RCR) | payer MEDICARE, SELFPAY | END 2021-01-02 23:59 | disposition home or self-care (01) | LOC: SPT 10:47 | PROVIDERS: PCP Internal Medicine; Referring Provider Specialist; Visit Provider Specialist | DX: R27.0 Ataxia, unspecified (principal) | CPT/HCPCS: 97110; 97161 ==

== ENCOUNTER 2020-12-27 07:01 | Outpatient (CLI) | payer MEDICARE, SELFPAY ==
--- NOTE | 2020-12-27 07:15 | MR_ITS ---
WS: [id number] MRI BRAIN WITHOUT CONTRAST HISTORY: I63.9 - Cerebral infarction, unspecified COMPARISON: 10/19/2015 TECHNIQUE: Diffusion imaging, multiplanar T1, T2 and FLAIR imaging obtained. No evidence for acute infarct or hemorrhage. Payton-white matter differentiation is normal. There are a few scattered T2 and FLAIR sequence hyperintensities from chronic microvascular ischemic disease. Pr eviously described LEFT temporal lobe hyperintensity on the T2 sequences is not as well seen today se condary to motion. Very mild atrophy. Ventricles and extra-axial spaces are normal. No inferior displacement of cerebellar tonsils. The sella turcica and pituitary gland are unremarkabl e. Posterior fossa is also unremarkable. Dural venous sinuses and [place] demonstrate no abnormality on this unenhanced studies. Paranasal sinuses: Clear. Mastoid air cells: Normal. Calvarium and scalp: Intact. MR/MR head wo con* [id number] IMPRESSION: 1. No acute infarct. 2. Mild atrophy and mild chronic microvascular ischemic disease. 3. Study is slightly limited by motion artifact.
== END 2020-12-27 07:02 | disposition home or self-care (01) ==
LOC: RADSHAW 07:03
PROVIDERS: PCP Internal Medicine; Visit Provider Specialist
DX: I63.9 Cerebral infarction, unspecified (principal); I67.82 Cerebral ischemia; G31.9 Degenerative disease of nervous system, unspecified
CPT/HCPCS: 70551; 99215

== ENCOUNTER 2021-01-03 06:00 | Outpatient (RCR) | payer MEDICARE, SELFPAY | END 2021-02-01 23:59 | disposition home or self-care (01) | LOC: SPT 06:00 | PROVIDERS: PCP Internal Medicine; Referring Provider Specialist; Visit Provider Specialist | DX: R27.0 Ataxia, unspecified (principal) | CPT/HCPCS: 97110 ==

== ENCOUNTER → 2021-02-20 14:21 | Outpatient (BNVA) | payer MEDICARE, SELFPAY | PROVIDERS: PCP Internal Medicine; Visit Provider Specialist | DX: G62.9 Polyneuropathy, unspecified (principal); G20 Parkinson's disease | CPT/HCPCS: 99214 ==

== ENCOUNTER 2021-02-22 06:00 | Outpatient (RCR) | payer MEDICARE, SELFPAY | END 2021-03-04 23:59 | disposition home or self-care (01) | LOC: SPT 06:00 | PROVIDERS: PCP Internal Medicine; Referring Provider Specialist; Visit Provider Specialist | DX: M25.511 Pain in right shoulder (principal) | CPT/HCPCS: 97161 ==

== ENCOUNTER 2021-03-05 06:00 | Outpatient (RCR) | payer MEDICARE, SELFPAY | END 2021-03-22 23:59 | disposition home or self-care (01) | LOC: SPT 06:00 | PROVIDERS: PCP Internal Medicine; Referring Provider Nurse Practitioner Family; Visit Provider Nurse Practitioner Family | DX: M25.511 Pain in right shoulder (principal) | CPT/HCPCS: 97110 ==

== ENCOUNTER → 2021-04-04 08:10 | Outpatient (BNVA) | payer MEDICARE, SELFPAY | PROVIDERS: PCP Internal Medicine; Visit Provider Urology | DX: N52.1 Erectile dysfunction due to diseases classified elsewhere (principal) | CPT/HCPCS: 81003 ==

== ENCOUNTER → 2021-06-07 09:25 | Outpatient (BNVA) | payer MEDICARE, SELFPAY | PROVIDERS: PCP Internal Medicine; Referring Provider Internal Medicine; Visit Provider Specialist | DX: M25.511 Pain in right shoulder (principal) | CPT/HCPCS: 73030 ==

== ENCOUNTER → 2021-12-21 08:23 | Outpatient (BNVA) | payer MEDICARE, SELFPAY | PROVIDERS: PCP Family Medicine; Visit Provider Specialist | DX: M75.81 Other shoulder lesions, right shoulder (principal) | CPT/HCPCS: 20610; J1100; J2795; J3301 ==

== ENCOUNTER → 2022-01-02 13:14 | Outpatient (BNVA) | payer MEDICARE, SELFPAY | PROVIDERS: PCP Family Medicine; Visit Provider Specialist | DX: G20 Parkinson's disease (principal); G62.9 Polyneuropathy, unspecified; G43.711 Chronic migraine without aura, intractable, with status migrainosus | CPT/HCPCS: 99214 ==

== ENCOUNTER → 2022-03-22 07:58 | Outpatient (BNVA) | payer MEDICARE, SELFPAY | PROVIDERS: PCP Family Medicine; Visit Provider Specialist | DX: M19.011 Primary osteoarthritis, right shoulder (principal); M75.81 Other shoulder lesions, right shoulder | CPT/HCPCS: 20610; J1100; J2795; J3301 ==

== ENCOUNTER → 2022-04-04 13:11 | Outpatient (BNVA) | payer MEDICARE, SELFPAY | PROVIDERS: PCP Family Medicine; Visit Provider Specialist | DX: G25.0 Essential tremor (principal); G62.9 Polyneuropathy, unspecified; H54.7 Unspecified visual loss; G43.711 Chronic migraine without aura, intractable, with status migrainosus; F41.9 Anxiety disorder, unspecified; G47.52 REM sleep behavior disorder | CPT/HCPCS: 99214 ==

== ENCOUNTER 2022-06-07 15:04 | Outpatient (CLI) | payer MEDICARE, SELFPAY ==
--- NOTE | 2022-06-07 15:14 | CT_ITS ---
WS: [id number] CT HEAD TECHNIQUE: Noncontrast CT of the head obtained from the skullbase to the vertex. CLINICAL INFORMATION: HISTORY OF STROKE,UNSPECIFIED FALL COMPARISON: March 18, 2020 and 2020 DLP: 1120.[address] scans at [facility] use at least one of these dose optimization techniques: automated e xposure control; mA and/or kV adjustment per patient size (includes targeted exams where dose is matc hed to clinical indication); or iterative reconstruction. FINDINGS: No evidence of intracranial hemorrhage or mass effect. Ventricular system and basal cisterns are darby nt. Mild small vessel changes with mild parenchymal volume loss. No extra-axial fluid collections. No evidence of mass or mass effect. LEFT globe prosthesis. Paranasal sinuses and mastoid air cells are well aerated. .Normal visualized soft tissues. CT/CT head wo con* [id number] IMPRESSION: 1. No evidence of intracranial hemorrhage or mass effect. 2. Mild small vessel changes. Mild parenchymal volume loss. 3. No acute intracranial findings. Notified Jen AARONP at 06/07/2022 3:41 PM.
== END 2022-06-07 15:05 | disposition home or self-care (01) ==
LOC: RAD 15:06
PROVIDERS: PCP Family Medicine; Visit Provider Nurse Practitioner Family
DX: Z86.79 Personal history of other diseases of the circulatory system (principal); W19.XXXA Unspecified fall, initial encounter
CPT/HCPCS: 70450

== ENCOUNTER → 2022-07-19 13:12 | Outpatient (BNVA) | payer MEDICARE, SELFPAY | PROVIDERS: PCP Family Medicine; Visit Provider Specialist | DX: M75.81 Other shoulder lesions, right shoulder (principal); Z71.89 Other specified counseling | CPT/HCPCS: 20610; J1100; J2795; J3301 ==

== ENCOUNTER → 2022-10-11 10:44 | Outpatient (BNVA) | payer MEDICARE, SELFPAY | PROVIDERS: PCP Family Medicine; Visit Provider Specialist | DX: M75.81 Other shoulder lesions, right shoulder (principal); Z71.89 Other specified counseling | CPT/HCPCS: 20610; J1100; J2795; J3301 ==

== ENCOUNTER 2022-11-01 14:25 | Outpatient (CLI) | payer MEDICARE, SELFPAY ==
--- NOTE | 2022-11-01 15:15 | US_ITS ---
WS: [id number] ULTRASOUND SOFT TISSUES RIGHT forearm. HISTORY: soft tissue mass COMPARISON: None available. TECHNIQUE: 2-D and color Doppler imaging is submitted. Patient directed ultrasound to the palpable area along the lateral forearm. In the region of palpable abnormality there is a normal superficial vessel. No soft tissue mass identified. No distortion of t he muscles or subcutaneous gas tissue. US/US soft tissue/extremity [id number] IMPRESSION: Normal ultrasound RIGHT forearm. No mass identified.
== END 2022-11-01 14:26 | disposition home or self-care (01) ==
PROVIDERS: PCP Family Medicine; Visit Provider Dermatology
DX: R22.31 Localized swelling, mass and lump, right upper limb (principal); M79.601 Pain in right arm
CPT/HCPCS: 76882

== ENCOUNTER 2022-12-05 12:12 | Outpatient (CLI) | payer MEDICARE, SELFPAY ==
--- NOTE | 2022-12-05 12:25 | XR_ITS ---
WS: [id number] XR shoulder RT min 2V* [id number] REASON FOR EXAM: PAIN IN RIGHT SHOULDER FINDINGS: No fracture or focal bone lesion. Moderate narrowing of the acromioclavicular joint with mild subchondral sclerosis. Normal alignment o f the acromioclavicular joint. Mild narrowing of the glenohumeral joint with subchondral sclerosis of the glenoid. Small osteophytos is of the humeral head. Significant sclerosis and cystic change in the biceps tuberosity. XR/XR shoulder RT min 2V* [id number] IMPRESSION: No acute bone or joint abnormality identified. 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
== END 2022-12-05 12:13 | disposition home or self-care (01) ==
LOC: RAD 12:18
PROVIDERS: PCP Family Medicine; Visit Provider Family Medicine
DX: M19.011 Primary osteoarthritis, right shoulder (principal)
CPT/HCPCS: 73030

== ENCOUNTER 2022-12-07 13:45 | Outpatient (CLI) | payer MEDICARE, SELFPAY ==
--- NOTE | 2022-12-07 14:22 | XR_ITS ---
WS: [id number] Right clavicle, 2 views, 12/07/2022 Clinical Data: PAIN IN RIGHT SHOULDER Comparison: Right shoulder, 12/05/2022 Findings: No fractures or dislocations are seen. The AC joint is normal. The soft tissues are unremarkable. The sternoclavicular joint is normal. There are sutures in the right lung apex from prior surgery. XR/[place] [id number] Impression: Negative right clavicle.
== END 2022-12-07 13:46 | disposition home or self-care (01) ==
PROVIDERS: PCP Family Medicine; Visit Provider Family Medicine
DX: M25.511 Pain in right shoulder (principal)
CPT/HCPCS: 73000

== ENCOUNTER → 2023-01-17 10:35 | Outpatient (BNVA) | payer MEDICARE, SELFPAY | PROVIDERS: PCP Family Medicine; Visit Provider Specialist | DX: M75.81 Other shoulder lesions, right shoulder (principal) | CPT/HCPCS: 20610; J1100; J2795; J3301 ==

== ENCOUNTER → 2023-04-03 14:27 | Outpatient (BNVA) | payer MEDICARE, SELFPAY | PROVIDERS: PCP Family Medicine; Visit Provider Specialist | DX: G43.711 Chronic migraine without aura, intractable, with status migrainosus (principal); R29.90 Unspecified symptoms and signs involving the nervous system; G20 Parkinson's disease; G25.0 Essential tremor | CPT/HCPCS: 99214 ==

== ENCOUNTER 2023-05-13 16:27 | Observation (INO) | payer MEDICARE, SELFPAY ==
[2023-05-13 16:33] VITALS: BP 151/94; PULSE 95; RESP 17; TEMP 37.6; O2SAT 97; BMI 28.8
[2023-05-13 16:36] VITALS: BP 138/69; PULSE 84; RESP 16; O2SAT 93
--- NOTE | 2023-05-13 16:50 | ED_ITS ---
HPI - Abdominal Pain General: Chief Complaint: Abdominal Pain Stated Complaint: abd pain Time Seen by Provider: 05/13/23 16:38 Source: patient and family Mode of arrival: ambulatory Limitations: no limitations History of Present Illness: Patient is a 83-year-old male who presents the emergency room with abdominal pain. Patient states that he started having abdominal pain on Saturday around 5 PM. Denies any abnormal food or relating factors to the abdominal pain. Patient does state that he has been having fevers as well as night sweats and some nausea. Patient denies any shortness of breath or chest pain. Does state that he has not had a bowel movement since before Saturday but unable to state last bowel movement. Denies any dysuria. Denies any improving or worsening factors. No other complaints at this time. MD elicited complaint: abdominal pain Associated Symptoms: Reports chills, fever(s) and nausea; Denies dysuria Review of Systems Const: Reports: fever(s), chills and night sweats Eyes: Denies: change in vision ENMT: Denies: throat pain or mouth pain Card: Denies: chest pain or palpitations Resp: Denies: dyspnea or productive cough GI: Reports: abdominal pain and nausea : Denies: flank pain, difficulty urinating or dysuria Musc: Denies: neck pain or back pain Skin/Breast: Denies: rash Neuro: Denies: headache(s) PFSH ED PFSH: Medical History Blindness Detached retina Erectile dysfunction Parkinson disease Pneumothorax Stroke Surgical History H/O transurethral destruction of bladder lesion Family History Father , 70 CAD (coronary artery disease) Stroke Mother , 84 Stroke Social History Smoking and tobacco status: former smoker Alcohol intake: never Substance/Drug Use: never Marital status: Life Partner Current occupational status: retired Physical Exam Const: COMMON NORMALS: patient oriented x3 and alert GENERAL APPEARANCE: cooperative ORIENTATION/CONSCIOUSNESS: Yes awake HENMT: COMMON NORMALS: normocephalic HEAD & SCALP: normocephalic Eye: COMMON NORMALS: Equal, round and reactive pupils present and EOMs intact bilaterally PUPIL: Yes Equal, round and reactive pupils present Neck/C-Spine: COMMON NORMALS: full ROM, no lymphadenopathy and no JVD Lymph: LYMPHATIC: no lymphadenopathy noted Chest: CHEST: Yes Symmetrical chest wall rise Resp: COMMON NORMALS: normal respiratory effort and clear to auscultation bilaterally EFFORT & INSPECTION: Yes symmetric chest movement AUSCULTATION: clear to auscultation bilaterally Cardio: COMMON NORMALS: no JVD, S1 normal heart sound present and Peripheral pulses 2+ throughout HEART SOUNDS: S1 normal heart sound present PERIPHERAL PULSES: Peripheral pulses 2+ throughout GI: INSPECTION: Yes normal to inspection AUSCULTATION: Yes Hypoactive bowel sounds present PALPATION: Yes Firmness to palpation present (GI) and Yes Tenderness to palpation present (GI) : COMMON NORMALS: Yes no CVA tenderness BLADDER/KIDNEY EXAM: Yes no CVA tenderness Back/Pelvis: COMMON NORMALS: no CVA tenderness Extremity: COMMON NORMALS: normal to inspection Neuro: COMMON NORMALS: patient oriented x3 SENSORIUM/ORIENTATION: Yes alert Course Vital Signs: Vital signs: Vital Signs Temperature 99.6 F 05/13/23 16:33 Pulse Rate 87 05/13/23 18:06 Respiratory Rate 18 05/13/23 17:05 Blood Pressure 159/84 05/13/23 18:06 Pulse Oximetry 94 05/13/23 18:06 Oxygen Delivery Me thod Room Air 05/13/23 16:36 MDM - Abdominal Pain Medical Decision Making Patient presents here with abdominal pain he is exquisitely tender in the right upper quadrant ultrasound shows cholecystitis here he is continue have cruzito e pain here did give him IV antibiotics spoke to surgeon along with hospitalist will admit at this time Medical Records I reviewed the patient's medical records. Lab Data I reviewed the patient's lab results. 05/13/23 16:55 05/13/23 16:55 Labs/Radiology: Radiology Impressions Abdomen/Pelvis CT 05/13/23 16:50 IMPRESSION: 1. Peripancreatic edema without focal fluid collection, please correlate for pancreatitis. 2. Gastric wall thickening with prominent fluid in the stomach and small bowel suggestive of a gastroenteritis. 3. Diverticulosis without diverticulitis. 4. Hepatic steatosis. 5. Right diaphragmatic calcified benign plaque. 6. Cholelithiasis. 7. Bilateral renal cysts, negative for follow up advised. 8. 6.8 mm urinary bladder calculus. 9. Small right inguinal hernia containing omentum without bowel. 10. Bilateral renal cysts, negative for follow up advised. 11. Minimal perinephric edema bilaterally likely reflecting renal insufficiency, please correlate for pyelonephritis. Gallbladder Ultrasound 05/13/23 20:43 IMPRESSION: 1. Cholelithiasis with a wall echo shadow sign and gallbladder wall thickening to 7.8 mm and positive Maguire sign concerning for cholecystitis. 2. Hepatic steatosis. Laboratory Results WBC 11.96 10^3/uL (3.29-11.43) H 05/13/23 16:55 RBC 4.55 10^6/uL (3.85-5.65) 05/13/23 16:55 Hgb 13.80 g/dL (11.27-16.99) 05/13/23 16:55 Hct 40.7 % (37-53) 05/13/23 16:55 MCV 89.5 fl (82-101) 05/13/23 16:55 MCH 30.3 pg (27-33) 05/13/23 16:55 MCHC 33.9 g/dL (30-55) 05/13/23 16:55 RDW 13.3 % (12.1-15.1) 05/13/23 16:55 Plt Count 209 10^3/cmm (157-399) 05/13/23 16:55 MPV 9.5 fL (7.4-10.4) 05/13/23 16:55 Neut % (Auto) 72.9 % 05/13/23 16:55 Lymph % (Auto) 17.0 % 05/13/23 16:55 Stephenson % (Auto) 7.6 % 05/13/23 16:55 Eos % (Auto) 2.0 % 05/13/23 16:55 Baso % (Auto) 0.3 % 05/13/23 16:55 Neut # (Auto) 8.73 10^3/uL (1.8-7.7) H 05/13/23 16:55 Lymph # (Auto) 2.0 10^3/uL (0.8-4.8) 05/13/23 16:55 Stephenson # (Auto) 0.9 10^3/uL (0.2-0.9) 05/13/23 16:55 Eos # (Auto) 0.2 10^3/uL (0.0-0.8) 05/13/23 16:55 Baso # (Auto) 0.0 10^3/uL (0.0-0.1) 05/13/23 16:55 Nucleated RBC % (auto) 0 % 05/13/23 16:55 Nucleated RBCs # 0.0 /100WBC 05/13/23 16:55 Sodium 133 mmol/L (136-145) L 05/13/23 16:55 Potassium 3.6 mmol/L (3.5-5.1) 05/13/23 16:55 Chloride 99 mmol/L (98-107) 05/13/23 16:55 Carbon Dioxide 24 mmol/L (22-29) 05/13/23 16:55 Anion Gap 13.6 (5-19) 05/13/23 16:55 BUN 16 mg/dL (8-23) 05/13/23 16:55 Creatinine 1.0 mg/dL (0.7-1.2) 05/13/23 16:55 GFR Calculation Not Reportable 05/13/23 16:55 Glucose 115 mg/dL (65-115) 05/13/23 16:55 Calculated Osmolality 278 mOsm/kg (285-295) L 05/13/23 16:55 Calcium 9.8 mg/dL (8.5-10.5) 05/13/23 16:55 Total Bilirubin 0.8 mg/dL (0.15-1.2) 05/13/23 16:55 AST 60 U/L (0-40) H 05/13/23 16:55 ALT 178 U/L (0-41) H 05/13/23 16:55 Alkaline Phosphatase 148 U/L (40-130) H 05/13/23 16:55 Total Protein 7.0 g/dL (6.6-8.7) 05/13/23 16:55 Albumin 4.1 g/dL (3.5-5.2) 05/13/23 16:55 Globulin 2.9 g/dL (1.3-4.6) 05/13/23 16:55 Lipase 69 U/L (13-60) H 05/13/23 16:55 Urine Color Yellow (Yellow) 05/13/23 16:55 Urine Appearance Cloudy (CLEAR) A 05/13/23 16:55 Urine pH 8 (5-7) H 05/13/23 16:55 Ur Specific [place] 1.010 (1.005-1.030) 05/13/23 16:55 Urine Protein Neg (Negative) 05/13/23 16:55 Urine Glucose (UA) Norm (Normal) 05/13/23 16:55 Urine Ketones Negative (Negative) 05/13/23 16:55 Urine Blood Neg (Negative) 05/13/23 16:55 Urine Nitrate Negative (Negative) 05/13/23 16:55 Urine Bilirubin Neg (Negative) 05/13/23 16:55 Prot Sulfosalicylic Acd Negative (Negative) 05/13/23 16:55 Urine Urobilinogen Norm mg/dL (Negative) 05/13/23 16:55 Ur Leukocyte Esterase Negative (Negative) 05/13/23 16:55 Urine RBC 0-4 /hpf (0-2) H 05/13/23 16:55 Urine WBC 0-4 /hpf (0-5) H 05/13/23 16:55 Ur Squamous Epith Cells 0-4 /hpf (0-5) H 05/13/23 16:55 Amorphous Sediment 4+ /hpf 05/13/23 16:55 Urine Bacteria Trace /hpf (NONE) 05/13/23 16:55 All radiology interpretation(s) finalized by discharge Discharge Plan Discharge Patient Disposition: Admitted As Inpatient Clinical Impression: Abdominal pain, Cholecystitis Condition: Stable Coding Level of Care Code ED Kier Pleater for Marzena Alvarado
--- NOTE | 2023-05-13 16:50 | CTR_ITS ---
PROCEDURE INFORMATION: Exam: CT Abdomen And Pelvis With Contrast Exam date and time: 05/13/2023 6:38 PM Age: 83 years old Clinical indication: Nausea and vomiting; Abdominal pain; Localized; Lower; Additional info: Abd pain TECHNIQUE: Imaging protocol: Computed tomography of the abdomen and pelvis with contrast. Radiation optimization: All CT scans at this facility use at least one of these dose optimization techniques: automated exposure control; mA and/or kV adjustment per patient size (includes targeted exams where dose is matched to clinical indication); or iterative reconstruction. Contrast material: OMNI 350; Contrast volume: 100 ml; Contrast route: INTRAVENOUS (IV); REPORTING DATA: Count of CT and Cardiac NM exams in prior 12 months: This patient has received [address] and 0 known cardiac nuclear medicine studies in the 12 months prior to the current study. COMPARISON: CT chest abd pel w con* 03/18/2020 7:48 PM RADIATION DOSE METRICS: Total DLP (mGy-cm): 737.69 FINDINGS: Diaphragm: Right diaphragmatic calcified benign plaque. Liver: Hepatic steatosis. Gallbladder and bile ducts: Cholelithiasis. Pancreas: Peripancreatic edema without focal fluid collection, please correlate for pancreatitis. Spleen: Normal. No splenomegaly. Adrenal glands: Normal. No mass. Kidneys and ureters: Bilateral renal cysts, negative for follow up advised. Minimal perinephric edema bilaterally likely reflecting renal insufficiency, please correlate for pyelonephritis. Stomach and bowel: Gastric wall thickening with prominent fluid in the stomach and small bowel suggestive of a gastroenteritis. Diverticulosis without diverticulitis. Appendix: No evidence of appendicitis. Intraperitoneal space: Unremarkable. No free air. No significant fluid collection. Vasculature: Unremarkable. No abdominal aortic aneurysm. Lymph nodes: Unremarkable. No enlarged lymph nodes. Urinary bladder: 6.8 mm urinary bladder calculus. Reproductive: Unremarkable as visualized. Bones/joints: Unremarkable. No acute fracture. Soft tissues: Small right inguinal hernia containing omentum without bowel. CT/CT abdomen pelvis w con* [id number] IMPRESSION: 1. Peripancreatic edema without focal fluid collection, please correlate for pancreatitis. 2. Gastric wall thickening with prominent fluid in the stomach and small bowel suggestive of a gastroenteritis. 3. Diverticulosis without diverticulitis. 4. Hepatic steatosis. 5. Right diaphragmatic calcified benign plaque. 6. Cholelithiasis. 7. Bilateral renal cysts, negative for follow up advised. 8. 6.8 mm urinary bladder calculus. 9. Small right inguinal hernia containing omentum without bowel. 10. Bilateral renal cysts, negative for follow up advised. 11. Minimal perinephric edema bilaterally likely reflecting renal insufficiency, please correlate for pyelonephritis.
[2023-05-13 17:05] VITALS: RESP 18; O2SAT 95
[2023-05-13] MEDS: morphine 4 mg/mL SDV 1 mL IVP (17:05)
[2023-05-13 17:06] LABS: Basophils % 0.3 %; Eosinophils # 0.2 10^3/uL (0.0-0.8); Hematocrit 40.7 % (37-53); Mean Corpuscular HGB Conc 33.9 g/dL (30-55); Mean Corpuscular Hemoglobin 30.3 pg (27-33); Mean Corpuscular Volume 89.5 fl (82-101); Mean Platelet Volume 9.5 fL (7.4-10.4); Monocytes # 0.9 10^3/uL (0.2-0.9); Monocytes % 7.6 %; Neutrophils # 8.73 10^3/uL (1.8-7.7); Neutrophils % 72.9 %; Nucleated Red Blood Cells % 0 %; Platelet Count 209 10^3/cmm (157-399); Red Blood Count 4.55 10^6/uL (3.85-5.65); Red Cell Distribution Width 13.3 % (12.1-15.1); White Blood Count 11.96 10^3/uL (3.29-11.43)
[2023-05-13] MEDS: sodium chloride 0.9% 1,000 ML 999 ML IV (17:06)
[2023-05-13] MEDS: ondansetron 2 mg/ML SDV 2 mL 4 MG IVP ×2 (17:06→22:26)
[2023-05-13 17:22] LABS: Alanine Aminotransferase 178 U/L (0-41); Albumin Level 4.1 g/dL (3.5-5.2); Alkaline Phosphatase 148 U/L (40-130); Anion Gap 13.6 (5-19); Aspartate Amino Transferase 60 U/L (0-40); Blood Urea Nitrogen 16 mg/dL (8-23); Calcium 9.8 mg/dL (8.5-10.5); Carbon Dioxide 24 mmol/L (22-29); Chloride 99 mmol/L (98-107); Globulin 2.9 g/dL (1.3-4.6); Glucose 115 mg/dL (65-115); Lipase 69 U/L (13-60); Osmolality Calculated 278 mOsm/kg (285-295); Potassium 3.6 mmol/L (3.5-5.1); Sodium 133 mmol/L (136-145); Total Bilirubin 0.8 mg/dL (0.15-1.2)
[2023-05-13 17:43] LABS: Urine Appearance Cloudy (CLEAR); Urine Color Yellow (Yellow)
[2023-05-13 17:44] LABS: Add Urine Culture? No; Add Urine Microscopic? YES; Amorphous Sediment Urine 4+ /hpf; Bacteria Urine TRACE /hpf; Bilirubin Urine Neg (Negative); Blood Urine Neg (Negative); Glucose Urine UA Norm (Normal); Ketones Urine Negative (Negative); Leukocyte Esterase Urine Negative (Negative); Nitrate Urine Negative (Negative); Protein Urine Neg (Negative); RBC Urine 0-4 /hpf (0-2); Squamous Epithelial Cell Urine 0-4 /hpf (0-5); Sulfosalicylic Acid Urine Negative (Negative); Urobilinogen Urine Norm (Negative); WBC Urine 0-4 /hpf (0-5); pH Urine 8 (5-7)
[2023-05-13 18:06] VITALS: BP 159/84; PULSE 87; O2SAT 94
[2023-05-13] MEDS: iohexol 350 mg/mL 500 mL Btl (per mL) IV (18:42)
--- NOTE | 2023-05-13 20:43 | USR_ITS ---
PROCEDURE INFORMATION: Exam: US Abdomen, Limited; Right Upper Quadrant Exam date and time: 05/13/2023 8:53 PM Age: 83 years old Clinical indication: Epigastric; Patient HX: Diffuse abdominal pain, bloating with n+v x 3 days. ; Additional info: Abd pain TECHNIQUE: Imaging protocol: Real time ultrasound of the abdomen with image documentation. Limited exam focused on the right upper quadrant. COMPARISON: CT abdomen pelvis w con* [id number] 05/13/2023 6:38 PM FINDINGS: Liver: Hepatic steatosis. Gallbladder: Cholelithiasis with a wall echo shadow sign and gallbladder wall thickening to 7.8 mm and positive Maguire sign concerning for cholecystitis. Biliary ducts: Normal. No stones. No dilation. Pancreas: Visualized pancreas is unremarkable. Right kidney: Normal. No mass. No hydronephrosis. US/US gall bladder [id number] IMPRESSION: 1. Cholelithiasis with a wall echo shadow sign and gallbladder wall thickening to 7.8 mm and positive Maguire sign concerning for cholecystitis. 2. Hepatic steatosis.
--- NOTE | 2023-05-13 21:44 | ECG_ITS ---
[facility] Test Date: 2023-05-13 Pat Name: Ariana Judd Department: Room: Gender: Male Inspector Chief: CLAYTON: 1940 Requested By: [place] Order Number: [id number] Sincere MD: Keaton Roper M.D. Measurements Intervals Emerson Rate: 85 P: 74 WI: 161 QRS: 24 QRSD: 81 T: 66 QT: 325 QTc: 387 Interpretive Statements SINUS RHYTHM LOW QRS VOLTAGE IN PRECORDIAL LEADS [QRS DEFLECTION < 1.0 mV IN CHEST LEADS] NONSPECIFIC ST & T-WAVE ABNORMALITY Compared to ECG 09/24/2018 23:38:37 Low QRS voltage now present T-wave abnormality still present Electronically Signed On 05-14-2023 9:15:13 CDT by Keaton Roper M.D. [id number]
--- NOTE | 2023-05-13 22:18 | PC.NURSE ---
Dr Enriquez gave verbal order for zofran d/t pt c/o nausea when she was in room. SHe also wants patient placed in a gown. Zofran 4mg ivp orderd and nurse notified.
[2023-05-13 22:21] VITALS: RESP 16
[2023-05-13] MEDS: HYDROmorphone 1 mg/mL INJ 1 mL 0.5 MG IVP (22:21)
[2023-05-13] MEDS: piperacillin-tazobactam 3.375 GM in sodium chloride 0.9% (plus) 50 ML IV (22:22)
[2023-05-13 22:33] VITALS: BP 140/81; PULSE 90; O2SAT 96
[2023-05-13] MEDS: sodium chloride 0.9% 1,000 ML 100 ML IV (23:09)
[2023-05-14] VITALS (21 sets, daily range): BP systolic 113–160; BP diastolic 65–97; PULSE 70–97; RESP 14–19; TEMP 36.2–38.3; O2SAT 91–100; BMI 28.8
--- NOTE | 2023-05-14 02:02 | P.HP_ITS ---
Providers/Chief Complaint Admitting Physician: Pravin Fay DO Primary Care Provider: James Barroso MD Chief Complaint: abd pain History of Present Illness Ariana Judd is a 83 year old male with history of Parkinson's disease presented with complaint of abdominal pain for 2 days. He described pain as 8 out of 10, cramping left upper quadrant nonradiating no aggravating or relieving factors. Pain was associated with nausea vomiting x1 and loss of appetite. No history of recent travel or eating outside food. He denies any fever cold cough shortness of breath dizziness urinary or bowel complaints. In ER he was found to have leukocytosis abnormal LFTs and USG gallbladder consistent with acute cholecystitis. Review of Systems Narrative: As per HPI Medications/Allergies Home Medications Medication Instructions Recorded Confirmed Last Taken Type aspirin 81 mg tablet,delayed 81 mg PO DAILY 11/24/19 05/14/23 2 Days Ago History release (Adult Aspirin Regimen) ~05/12/23 81 mg omeprazole 20 mg capsule,delayed 20 mg PO DAILY 11/24/19 05/14/23 2 Days Ago History release ~05/12/23 20 mg vit C 50 mg-E 15 unit-zinc cit 4.5 2 tab PO DAILY 11/24/19 05/14/23 2 Days Ago History mg-lutein 2.5 mg-zeaxan chew ~05/12/23 tablet (e(ye)BRAIN) 2 tab vitamin E 200 unit capsule 200 unit PO DAILY 11/24/19 05/14/23 2 Days Ago History ~05/12/23 200 mg vitamins A,C,K-yvqm-zlbspo 4,296 1 cap PO BID 11/24/19 05/14/23 2 Days Ago History mcg-226 mg-90 mg capsule ~05/12/23 (PreserVision AREDS) 1 cap zinc 50 mg tablet 50 mg PO DAILY 11/24/19 05/14/23 2 Days Ago History ~05/12/23 50 mg prednisone 5 mg tablet See Rx Instructions .Route 10/02/22 05/14/23 2 Days Ago Rx .COMPLEX #90 tabs ~05/12/23 5 mg clonazepam 1 mg tablet 1 mg PO DAILY 90 days #90 tabs 10/15/22 05/14/23 2 Days Ago Rx ~05/12/23 1 mg ezetimibe 10 mg tablet 10 mg PO DAILY 05/14/23 05/14/23 2 Days Ago History ~05/12/23 10 mg gabapentin 300 mg capsule 300 mg PO DAILY 05/14/23 05/14/23 2 Days Ago History ~05/12/23 300 mg naproxen sodium 220 mg capsule 220 mg PO BID PRN pain 05/14/23 05/14/23 Unknown History sildenafil 100 mg tablet 100 mg PO PRN PRN sexual activity 05/14/23 05/14/23 Unknown History topiramate 50 mg tablet 50 mg PO DAILY 05/14/23 05/14/23 2 Days Ago History ~05/12/23 50 mg venlafaxine 75 mg capsule,extended 75 mg PO DAILY 05/14/23 05/14/23 2 Days Ago History release 24 hr ~05/12/23 75 mg Allergies Allergy/AdvReac Type Severity Reaction Status Date / Time No Known Allergies Allergy Verified 04/03/23 15:12 PFSH Acute PFSH: Medical History Blindness Detached retina Erectile dysfunction Parkinson disease Pneumothorax Stroke Surgical History H/O transurethral destruction of bladder lesion Family History Father , 70 CAD (coronary artery disease) Stroke Mother , 84 Stroke Social History Smoking and tobacco status: former smoker Alcohol intake: never Substance/Drug Use: never Marital status: Life Partner Current occupational status: retired Vitals/I&O/Wt Last Vital Signs Temp 97.7 F 05/14/23 00:08 Pulse 87 05/14/23 00:08 Resp 17 05/14/23 00:08 BP 133/78 05/14/23 00:08 Pulse Ox 97 05/14/23 00:08 O2 Del Method Room Air 05/13/23 23:54 05/13/23 05/13/23 05/14/23 14:59 22:59 06:59 Output Total 200 / 200 Balance -200 / -200 Weight last 48 hrs Weight 86.183 kg Physical Exam Narrative: He is alert awake oriented x3. Hearing impaired not in acute distress Chest clear to auscultation bilaterally Cardiovascular normal heart sounds no murmurs Abdomen soft mildly distended diffuse tenderness but more on right upper quadrant, normal bowel sounds Extremities no edema present. Data 05/13/23 16:55 05/13/23 16:55 US: Radiologist's impression: IMPRESSION: 1. ? Cholelithiasis with a wall echo shadow sign and gallbladder wall thickening to 7.8 mm and positive Maguire sign concerning for cholecystitis. 2. ? Hepatic steatosis CT Abd/Pel: Radiologist's impression: IMPRESSION: 1. ? Peripancreatic edema without focal fluid collection, please correlate for pancreatitis. 2. ? Gastric wall thickening with prominent fluid in the stomach and small bowel suggestive of a gastroenteritis. 3. ? Diverticulosis without diverticulitis. 4. ? Hepatic steatosis. 5. ? Right diaphragmatic calcified benign plaque. 6. ? Cholelithiasis. 7. ? Bilateral renal cysts, negative for follow up advised. 8. ? 6.8 mm urinary bladder calculus. 9. ? Small right inguinal hernia containing omentum without bowel. 10. ? Bilateral renal cysts, negative for follow up advised.? 11.? Minimal perinephric edema bilaterally likely reflecting renal insufficiency, please correlate for pyelonephritis. ? EKG 1: My Interpretation: Normal sinus rhythm No acute ST-T changes A&P Assessment and plan (1) Abdominal pain: (2) Cholecystitis: Plan 83-year-old male with history of Parkinson's disease presented with complaint of abdominal pain nausea and vomiting since 2 days and found to have leukocytosis abnormal LFTs likely secondary to acute cholecystitis Continue IV fluids normal saline at 100 mL/h IV Zosyn 3.375 mg every 8 hours IV Zofran 4 mg every 6 hours as needed IV pantoprazole 40 mg every 12 He is n.p.o. past midnight for possible cholecystectomy in a.m. Follow-up surgery consult from ER Resume home medication except aspirin Continue pantoprazole for stress ulcer prophylaxis Intermittent compression stockings for DVT prophylaxis He is full code for now. Attestations Medical Necessity Statement*: He needs more than 2 midnights of hospitalization for surgery for acute cholecystitis and postop recovery Time Spent in Patient Care: 30 minutes Coding Level of Care Code Acute Code for [facility] Fwd Diagnoses Abdominal pain R10.9 Cholecystitis K81.9 Time Spent (min) 30
[2023-05-14] MEDS: pantoprazole 40 mg SDV IVP ×2 (03:13→15:09)
[2023-05-14] MEDS: morphine 4 mg/mL SDV 1 mL IVP ×2 (03:20→09:58)
[2023-05-14] MEDS: piperacillin-tazobactam 3.375 GM in sodium chloride 0.9% (plus) 50 ML IV ×3 (04:20→18:16)
[2023-05-14] MEDS: CLONazepam 1 mg Tablet PO (09:58)
[2023-05-14] MEDS: ezetimibe 10 mg Tablet PO (10:23)
[2023-05-14] MEDS: zinc gluconate 50 mg Tablet PO (10:23)
[2023-05-14] MEDS: gabapentin 300 mg Capsule PO (10:23)
[2023-05-14] MEDS: topiramate 25 mg Tablet 50 MG PO (10:23)
[2023-05-14] MEDS: venlafaxine ER (24HR) 75 mg Capsule PO (10:24)
[2023-05-14] MEDS: predniSONE 5 mg Tablet PO (10:24)
[2023-05-14] MEDS: sodium chloride 0.9% 1,000 ML 100 ML IV (10:25)
--- NOTE | 2023-05-14 12:23 | P.CONIM_ITS ---
Providers/Reason For Consult Consulting Physician/Specialty*: Dr. Pravin Fay, DO/General surgery Reason for Consult*: Cholecystitis Attending Physician: Barry Card MD Primary Care Provider: James Barroso MD History of Present Illness History of Present Illness Ariana Judd is a 83 year old male presented to the hospital with 3-day history of right upper quadrant abdominal pain nausea and vomiting. Patient is very hard of hearing and does not have his hearing aids in. Family is answering questions for him. HPI and review of systems are limited secondary to this. They deny any hematemesis. He was febrile overnight. Ultrasound shows gallb ladder wall thickening and positive Maguire sign. Review of Systems General: Reports: ROS unobtainable due to medical condition Medications/Allergies Home Medications Medication Instructions Recorded Confirmed Last Taken Type aspirin 81 mg tablet,delayed 81 mg PO DAILY 11/24/19 05/14/23 2 Days Ago History release (Adult Aspirin Regimen) ~05/12/23 81 mg omeprazole 20 mg capsule,delayed 20 mg PO DAILY 11/24/19 05/14/23 2 Days Ago History release ~05/12/23 20 mg vit C 50 mg-E 15 unit-zinc cit 4.5 2 tab PO DAILY 11/24/19 05/14/23 2 Days Ago History mg-lutein 2.5 mg-zeaxan chew ~05/12/23 tablet ([employer]) 2 tab vitamin E 200 unit capsule 200 unit PO DAILY 11/24/19 05/14/23 2 Days Ago History ~05/12/23 200 mg vitamins A,C,C-bjzk-dqjimw 4,296 1 cap PO BID 11/24/19 05/14/23 2 Days Ago Hi story mcg-226 mg-90 mg capsule ~05/12/23 (PreserVision AREDS) 1 cap zinc 50 mg tablet 50 mg PO DAILY 11/24/19 05/14/23 2 Days Ago History ~05/12/23 50 mg prednisone 5 mg tablet See Rx Instructions .Route 10/02/22 05/14/23 2 Days Ago Rx .COMPLEX #90 tabs ~05/12/23 5 mg clonazepam 1 mg tablet 1 mg PO DAILY 90 days #90 tabs 10/15/22 05/14/23 2 Days Ago Rx ~05/12/23 1 mg ezetimibe 10 mg tablet 10 mg PO DAILY 05/14/23 05/14/23 2 Days Ago History ~05/12/23 10 mg gabapentin 300 mg capsule 300 mg PO DAILY 05/14/23 05/14/23 2 Days Ago History ~05/12/23 300 mg naproxen sodium 220 mg capsule 220 mg PO BID PRN pain 05/14/23 05/14/23 Unknown History sildenafil 100 mg tablet 100 mg PO PRN PRN sexual activity 05/14/23 05/14/23 Unknown History topiramate 50 mg tablet 50 mg PO DAILY 05/14/23 05/14/23 2 Days Ago History ~05/12/23 50 mg venlafaxine 75 mg capsule,extended 75 mg PO DAILY 05/14/23 05/14/23 2 Days Ago History release 24 hr ~05/12/23 75 mg Allergies Allergy/AdvReac Type Severity Reaction Status Date / Time No Known Allergies Allergy Verified 04/03/23 15:12 Current Medications Generic Name Dose Route Start Last Admin Trade Name Freq PRN Reason Stop Dose Admin Clonazepam 1 mg 05/14/23 09:00 05/14/23 09:58 Clonazepam 1 Mg Tablet PO 1 mg DAILY GUSTAVO Administration Ezetimibe 10 mg 05/14/23 09:00 05/14/23 10:23 Ezetimibe 10 Mg Tablet PO 10 mg DAILY GUSTAVO Administration Gabapentin 300 mg 05/14/23 09:00 05/14/23 10:23 Gabapentin 300 Mg Capsule PO 300 mg DAILY GUSTAVO Administration Sodium Chloride 1,000 mls @ 100 mls/hr 05/13/23 22:35 05/14/23 10:59 Sodium Chloride 0.9% IV 0 mls/hr .Q10H GUSTAVO Infusion Piperacillin Sod/Tazobactam 50 mls @ 12.5 mls/hr 05/14/23 11:00 05/14/23 10:59 Sod 3.375 gm/ Sodium Chloride IV 0 mls/hr Q8H GUSTAVO Infusion Protocol Morphine Sulfate 4 mg 05/13/23 22:35 05/14/23 09:58 Morphine 4 Mg/Ml Sdv 1 Ml IVP 4 mg Q4H PRN Administration SEVERE PAIN Pantoprazole Sodium 40 mg 05/14/23 02:00 05/14/23 03:13 Pantoprazole 40 Mg Sdv IVP 40 mg Q12H GUSTAVO Administration Prednisone 5 mg 05/14/23 09:00 05/14/23 10:24 Prednisone 5 Mg Tablet PO 5 mg DAILY GUSTAVO Administration Topiramate 50 mg 05/14/23 09:00 05/14/23 10:23 Topiramate 25 Mg Tablet PO 50 mg DAILY GUSTAVO Administration Venlafaxine HCl 75 mg 05/14/23 09:00 05/14/23 10:24 Venlafaxine Er (24hr) 75 Mg Capsule PO 75 mg DAILY GUSTAVO Administration Zinc Gluconate 50 mg 05/14/23 09:00 05/14/23 10:23 Zinc Gluconate 50 Mg Tablet PO 50 mg DAILY GUSTAVO Administration PFSH Acute PFSH: Medical History Blindness Detached retina Erectile dysfunction Parkinson disease Pneumothorax Stroke Surgical History H/O transurethral destruction of bladder lesion Family History Father , 70 CAD (coronary artery disease) Stroke Mother , 84 Stroke Social History Smoking and tobacco status: former smoker Alcohol intake: never Substance/Drug Use: never Marital status: Life Partner Current occupational status: retired Vitals/I&O/Wt Last Vital Signs Temp 99.0 F 05/14/23 11:26 Pulse 86 05/14/23 11:26 Resp 19 H 05/14/23 11:26 BP 124/74 05/14/23 11:26 Pulse Ox 96 05/14/23 11:26 O2 Del Method Room Air 05/14/23 11:52 05/13/23 05/14/23 05/14/23 22:59 06:59 14:59 Intake Total 50 / 50 2111.459 / 2111.459 Output Total 425 / 425 Balance 50 / 50 -425 / -375 2111.459 / 2111.459 Weight last 48 hrs Weight 190 lb Weight 190 lb Physical Exam Narrative: General : Patient is well developed , he is moaning in pain with his eyes closed and cannot hear well enough to answer questions Head : Normal cephalic, a-traumatic. Ears : Pinnae and external canal are normal. Hearing is extremely poor. Eyes : PERRLA, Sclera and injection are normal. No conjunctival discharge. Nose : Mucous membranes are without erythema. Throat : buccal mucosa is normal, gums are without significant recession or hypertrophy. Lungs : Equal chest rise bilaterally, no use of accessory muscles, trachea is midline. Cor : Rate and rhythm are normal. Abdomen : Soft, mildly distended, tender to palpation right upper quadrant, positive Maguire sign, no g/r/m Extremities : No edema, no cyanosis or clubbing, dorsalis pedis pulses are present bilaterally, non-tender to palpation of calves. Upper extremities are normal bilaterally. Back : non-tender to palpation, no CVA tenderness. Neuro : CN II - XII intact, Upper and lower extremities have equal and full strength Data 05/13/23 16:55 05/13/23 16:55 A&P Assessment and plan (1) Acute cholecystitis: Plan Laparoscopic cholecystectomy The risks and benefits of the procedure, including but not limited to, bleeding, infection, scar, numbness, pain, damage to surrounding structures, damage to common bile duct requiring additional surgery, conversion to an open procedure, were explained to the patient. He is understanding of the risks and wishes to proceed. Coding Level of Care Code 14074 Diagnoses Acute cholecystitis K81.0
[2023-05-14] MEDS: lidocaine-epi 2% 20 mL INJ INJECTION (13:27)
--- NOTE | 2023-05-14 13:48 | P.OP_ITS ---
Operative Report Date of procedure: May 14, 2023 Pre-op diagnosis: Acute cholecystitis Post-op diagnosis: same Procedure done: Laparoscopic cholecystectomy Implants: None Specimens removed/disposition: Gallbladder Surgeon: Pravin Fay DO Anesthesia: General Estimated blood loss (mL): 5 Complications: None apparent Brief History: This very pleasant 83-year-old gentleman who presented to the hospital with acute cholecystitis. Laparoscopic cholecystectomy was indicated. The risk and benefits were explained and documented. Procedure: Patient was wheeled into the operative room and placed on the OR table in a supine position. Abdomen was inspected prepped and draped in usual sterile fashion. Time-out was performed and all present were in agreement. A 15 blade scalp was used to make a stab incision in the left upper quadrant and intra- abdominal insufflation was achieved using a Veress needle. After localizing the tissue incisions were made and a 5 millimeter trocar was placed into the umbilicus as well as 2 in the right upper quadrant. A 12 millimeter trocar was placed in the epigastrium. Gallbladder was grasped and elevated. The triangle of Calot was carefully dissected using blunt dissection and electrocautery until the triangle of [place]ot clearly identified. The cystic duct was clipped proximally and double clipped distally. The duct was then ligated proximally. The cystic artery was doubly clipped and ligated. The gallbladder was then removed from the liver bed using electrocautery. The gallbladder was removed from the abdomen using an Endo-Catch bag through the epigastric incision. The liver bed was inspected and no bleeding was seen. The abdomen was irrigated and suctioned. All ports removed. Skin was washed and dried. Incisions were closed with 4-0 Monocryl in a subcuticular interrupted fashion. Skin glue was applied. Patient tolerated the procedure well.
--- NOTE | 2023-05-14 13:57 | P.ANESASSM_ITS ---
Pre-Anesthetic Assessment Height/Weight: Height 1.73 m Weight 86.183 kg Temp Pulse Resp BP Pulse Ox O2 Del Method O2 Flow Rate 97.2 F L 87 19 H 146/86 100 Nasal Cannula 2 05/14/23 13:36 05/14/23 13:51 05/14/23 13:51 05/14/23 13:51 05/14/23 13:51 05/14/23 13:51 05/14/23 13:51 Operation Date: 05/14/23 12:00 Proposed Procedures p Laparoscopic Cholecystectomy(Not Applicable) - Pravin Fay DO Familial anesthetic complications: none Was Beta Michael taken within 24 hours: N/A Was Clonidine taken within 24 hours: N/A Last intake: Intake Last Liquid Date 05/13/23 Last Liquid Time 09:00 Last Solid Date 05/13/23 Last Solid Time 09:00 Social No alcohol and No tobacco Exam oriented x 3, clear to auscultation bilaterally and regular rate & rhythm Sleepy from the floor (morphine) Airway Submandibular: within normal limits Cervical ROM: within normal limits Mallampati: Class II Dentition: false GI Gastroesophageal Reflux Disease Neuropsych Cerebrovascular Accident, Headache and Neuropathy Parkinson's Anesthetic Plan ASA status: 3 Anesthesia: General Medications/Allergies Home Medications Medication Instructions Recorded Confirmed Last Taken Type aspirin 81 mg tablet,delayed 81 mg PO DAILY 11/24/19 05/14/23 2 Days Ago History release (Adult Aspirin Regimen) ~05/12/23 81 mg omeprazole 20 mg capsule,delayed 20 mg PO DAILY 11/24/19 05/14/23 2 Days Ago History release ~05/12/23 20 mg vit C 50 mg-E 15 unit-zinc cit 4.5 2 tab PO DAILY 11/24/19 05/14/23 2 Days Ago History mg-lutein 2.5 mg-zeaxan chew ~05/12/23 tablet ([employer] [facility] [employer]) 2 tab vitamin E 200 unit capsule 200 unit PO DAILY 11/24/19 05/14/23 2 Days Ago History ~05/12/23 200 mg vitamins A,C,G-fxak-rdlawr 4,296 1 cap PO BID 11/24/19 05/14/23 2 Days Ago History mcg-226 mg-90 mg capsule ~05/12/23 (PreserVision AREDS) 1 cap zinc 50 mg tablet 50 mg PO DAILY 11/24/19 05/14/23 2 Days Ago History ~05/12/23 50 mg prednisone 5 mg tablet See Rx Instructions .Route 10/02/22 05/14/23 2 Days Ago Rx .COMPLEX #90 tabs ~05/12/23 5 mg clonazepam 1 mg tablet 1 mg PO DAILY 90 days #90 tabs 10/15/22 05/14/23 2 Days Ago Rx ~05/12/23 1 mg ezetimibe 10 mg tablet 10 mg PO DAILY 05/14/23 05/14/23 2 Days Ago History ~05/12/23 10 mg gabapentin 300 mg capsule 300 mg PO DAILY 05/14/23 05/14/23 2 Days Ago History ~05/12/23 300 mg naproxen sodium 220 mg capsule 220 mg PO BID PRN pain 05/14/23 05/14/23 Unknown History sildenafil 100 mg tablet 100 mg PO PRN PRN sexual activity 05/14/23 05/14/23 Unknown History topiramate 50 mg tablet 50 mg PO DAILY 05/14/23 05/14/23 2 Days Ago History ~05/12/23 50 mg venlafaxine 75 mg capsule,extended 75 mg PO DAILY 05/14/23 05/14/23 2 Days Ago History release 24 hr ~05/12/23 75 mg Allergies Allergy/AdvReac Type Severity Reaction Status Date / Time No Known Allergies Allergy Verified 04/03/23 15:12 Current Medications Generic Name Dose Route Start Last Admin Trade Name Freq PRN Reason Stop Dose Admin Clonazepam 1 mg 05/14/23 09:00 05/14/23 09:58 Clonazepam 1 Mg Tablet PO 1 mg DAILY GUSTAVO Administration Ezetimibe 10 mg 05/14/23 09:00 05/14/23 10:23 Ezetimibe 10 Mg Tablet PO 10 mg DAILY GUSTAVO Administration Gabapentin 300 mg 05/14/23 09:00 05/14/23 10:23 Gabapentin 300 Mg Capsule PO 300 mg DAILY GUSTAVO Administration Sodium Chloride 1,000 mls @ 100 mls/hr 05/13/23 22:35 05/14/23 10:59 Sodium Chloride 0.9% IV 0 mls/hr .Q10H GUSTAVO Infusion Piperacillin Sod/Tazobactam 50 mls @ 12.5 mls/hr 05/14/23 11:00 05/14/23 12:30 Sod 3.375 gm/ Sodium Chloride IV Infused Q8H GUSTAVO Infusion Protocol Pantoprazole Sodium 40 mg 05/14/23 02:00 05/14/23 03:13 Pantoprazole 40 Mg Sdv IVP 40 mg Q12H GUSTAVO Administration Prednisone 5 mg 05/14/23 09:00 05/14/23 10:24 Prednisone 5 Mg Tablet PO 5 mg DAILY GUSTAVO Administration Topiramate 50 mg 05/14/23 09:00 05/14/23 10:23 Topiramate 25 Mg Tablet PO 50 mg DAILY GUSTAVO Administration Venlafaxine HCl 75 mg 05/14/23 09:00 05/14/23 10:24 Venlafaxine Er (24hr) 75 Mg Capsule PO 75 mg DAILY GUSTAVO Administration Zinc Gluconate 50 mg 05/14/23 09:00 05/14/23 10:23 Zinc Gluconate 50 Mg Tablet PO 50 mg DAILY GUSTAVO Administration PFSH Anesthesia Medical History Blindness Detached retina Erectile dysfunction Parkinson disease Pneumothorax Stroke Surgical History H/O transurethral destruction of bladder lesion Family History Father , 70 CAD (coronary artery disease) Stroke Mother , 84 Stroke Social History Smoking and tobacco status: former smoker Alcohol intake: never Substance/Drug Use: never Marital status: Life Partner Current occupational status: retired Data Anesthesia 05/13/23 16:55 05/13/23 16:55 Short CBC 05/13/23 Range/Units 16:55 WBC 11.96 H (3.29-11.43) 10^3/uL Hgb 13.80 (11.27-16.99) g/dL Hct 40.7 (37-53) % MCV 89.5 (82-101) fl Plt Count 209 (157-399) 10^3/cmm Neut % (Auto) 72.9 % Neut # (Auto) 8.73 H (1.8-7.7) 10^3/uL BMP 05/13/23 16:55 Sodium 133 L Potassium 3.6 Chloride 99 Carbon Dioxide 24 BUN 16 Creatinine 1.0 Glucose 115 Calcium 9.8 Liver Function 05/13/23 Range/Units 16:55 Total Bilirubin 0.8 (0.15-1.2) mg/dL AST 60 H (0-40) U/L ALT 178 H (0-41) U/L Alkaline Phosphatase 148 H (40-130) U/L Albumin 4.1 (3.5-5.2) g/dL Urine 05/13/23 Range/Units 16:55 Urine Color Yellow (Yellow) Urine Appearance Cloudy A (CLEAR) Urine pH 8 H (5-7) Ur Specific [place] 1.010 (1.005-1.030) Urine Protein Neg (Negative) Urine Glucose (UA) Norm (Normal) Urine Ketones Negative (Negative) Urine Nitrate Negative (Negative) Urine Bilirubin Neg (Negative) Ur Leukocyte Esterase Negative (Negative) Urine RBC 0-4 H (0-2) /hpf Urine WBC 0-4 H (0-5) /hpf Cardiac Studies: No Data to Display
--- NOTE | 2023-05-14 16:54 | ANE.PACU2 ---
Inpatient post-anesthesia follow up: Airway intact: Yes Vital signs: Temperature 97.8 F Pulse Rate 70 Respiratory Rate 16 Blood Pressure 119/68 Pulse Oximetry 94 Oxygen Delivery Me thod Nasal Cannula Oxygen Flow Rate 2 Fraction of Inspir ed Oxygen Hydration adequate: Yes Nausea and vomiting: No Pain level: 3 Mental status: Baseline
[2023-05-14] MEDS: HYDROcodone-acetaminophen 7.5-325 mg Tablet 1 TAB PO (19:32)
[2023-05-15] VITALS: BP 120/77; PULSE 81; RESP 17; TEMP 36.9; O2SAT 94
[2023-05-15] MEDS: sodium chloride 0.9% 1,000 ML 100 ML IV (01:12)
[2023-05-15] MEDS: piperacillin-tazobactam 3.375 GM in sodium chloride 0.9% (plus) 50 ML IV (02:19)
[2023-05-15] MEDS: pantoprazole 40 mg SDV IVP (02:20)
[2023-05-15 04:00] VITALS: BP 129/78; PULSE 79; RESP 18; TEMP 36.8; O2SAT 94
[2023-05-15 05:54] LABS: Basophils % 0.1 %; Hematocrit 33.4 % (37-53); Lymphocytes # 0.8 10^3/uL (0.8-4.8); Lymphocytes % 9.2 %; Mean Corpuscular HGB Conc 31.7 g/dL (30-55); Mean Corpuscular Hemoglobin 29.5 pg (27-33); Mean Platelet Volume 9.7 fL (7.4-10.4); Monocytes # 0.5 10^3/uL (0.2-0.9); Monocytes % 5.3 %; Neutrophils # 7.32 10^3/uL (1.8-7.7); Neutrophils % 85.1 %; Nucleated Red Blood Cells % 0 %; Platelet Count 155 10^3/cmm (157-399); Red Blood Count 3.59 10^6/uL (3.85-5.65); Red Cell Distribution Width 13.1 % (12.1-15.1); White Blood Count 8.61 10^3/uL (3.29-11.43)
[2023-05-15 06:10] LABS: Alanine Aminotransferase 89 U/L (0-41); Albumin Level 3.3 g/dL (3.5-5.2); Alkaline Phosphatase 91 U/L (40-130); Anion Gap 12.9 (5-19); Aspartate Amino Transferase 31 U/L (0-40); Blood Urea Nitrogen 15 mg/dL (8-23); Calcium 7.9 mg/dL (8.5-10.5); Carbon Dioxide 22 mmol/L (22-29); Chloride 106 mmol/L (98-107); Creatinine Clr Calc Pharmacy 49.8177; Globulin 2.1 g/dL (1.3-4.6); Glucose 145 mg/dL (65-115); Osmolality Calculated 287 mOsm/kg (285-295); Phosphorus 2.2 mg/dL (2.5-4.5); Potassium 3.9 mmol/L (3.5-5.1); Sodium 137 mmol/L (136-145); Total Bilirubin 0.4 mg/dL (0.15-1.2); Total Protein 5.4 g/dL (6.6-8.7)
[2023-05-15 07:21] VITALS: BP 127/83; PULSE 76; RESP 18; TEMP 36.9; O2SAT 97
[2023-05-15] MEDS: gabapentin 300 mg Capsule PO (08:47)
[2023-05-15] MEDS: topiramate 25 mg Tablet 50 MG PO (08:48)
[2023-05-15] MEDS: predniSONE 5 mg Tablet PO (08:48)
[2023-05-15] MEDS: ezetimibe 10 mg Tablet PO (08:48)
[2023-05-15] MEDS: zinc gluconate 50 mg Tablet PO (08:48)
[2023-05-15] MEDS: venlafaxine ER (24HR) 75 mg Capsule PO (08:48)
[2023-05-15] MEDS: sennosides-docusate Tablet 2 TAB PO (08:55)
[2023-05-15] MEDS: CLONazepam 1 mg Tablet PO (08:59)
--- NOTE | 2023-05-15 09:57 | PM.DCS ---
Discharge Providers Date of Admission: 05/14/23 01:59 Date of Discharge: May 15, 2023 Attending Provider at Admission: Pravin Fay DO Attending Provider at Discharge: Barry Card MD Consults: General Surgery Primary Care Provider: James Barroso MD Diagnoses at Discharge Discharge Diagnosis (1) Acute cholecystitis: Status: Acute Reason for Visit Reason for Visit: abd pain Hospital Course Hospital Course Ariana Judd is a 83-year-old male with a past medical history significant for blindness, Parkinson's disease, and stroke who presented to the emergency department with abdominal pain, found to have acute cholecystitis. Patient initially treated with IV antibiotics, IV fluids, analgesics, antiemetics. General surgery consulted and he underwent laparoscopic cholecystectomy. His postop course was uncomplicated. Symptoms improved and patient was discharged home in stable condition. He is to follow-up with his primary care provider for further care. Physical Exam Narrative: General: Patient is awake and alert. Pleasant. Head: Blind. Neck: No JVD. Cardiovascular: RRR. No gallops. No murmurs. Lungs: Clear to auscultation, no use of accessory muscles, no crackles or wheezes. Skin: No jaundice. No rashes. Abdomen: Normal bowel sounds, abdomen soft and nontender. Trocar sites are clean dry and intact with overlying adhesive. Extremities: No cyanosis or clubbing. Musculoskeletal: No erythematous joints. Neurological: Moves all 4 extremities. No myoclonus. Discharge Data Studies Completed and Pending Completed Studies During Hospitalization Category Date Time Status CT abdomen pelvis w con* [id number] Stat Cat Scan 05/13/23 16:50 Completed US gall bladder [id number] Stat Ultrasound 05/13/23 20:43 Completed Pending at discharge Category Date Time Status Pathology: Surgical [PTH] Routine Pth 05/14/23 13:26 Received Radiology Impressions Abdomen/Pelvis CT 05/13/23 16:50 IMPRESSION: 1. Peripancreatic edema without focal fluid collection, please correlate for pancreatitis. 2. Gastric wall thickening with prominent fluid in the stomach and small bowel suggestive of a gastroenteritis. 3. Diverticulosis without diverticulitis. 4. Hepatic steatosis. 5. Right diaphragmatic calcified benign plaque. 6. Cholelithiasis. 7. Bilateral renal cysts, negative for follow up advised. 8. 6.8 mm urinary bladder calculus. 9. Small right inguinal hernia containing omentum without bowel. 10. Bilateral renal cysts, negative for follow up advised. 11. Minimal perinephric edema bilaterally likely reflecting renal insufficiency, please correlate for pyelonephritis. Gallbladder Ultrasound 05/13/23 20:43 IMPRESSION: 1. Cholelithiasis with a wall echo shadow sign and gallbladder wall thickening to 7.8 mm and positive Maguire sign concerning for cholecystitis. 2. Hepatic steatosis. Laboratory Results WBC 8.61 10^3/uL (3.29-11.43) 05/15/23 05:07 RBC 3.59 10^6/uL (3.85-5.65) L 05/15/23 05:07 Hgb 10.60 g/dL (11.27-16.99) L 05/15/23 05:07 Hct 33.4 % (37-53) L 05/15/23 05:07 MCV 93.0 fl (82-101) 05/15/23 05:07 MCH 29.5 pg (27-33) 05/15/23 05:07 MCHC 31.7 g/dL (30-55) 05/15/23 05:07 RDW 13.1 % (12.1-15.1) 05/15/23 05:07 Plt Count 155 10^3/cmm (157-399) L 05/15/23 05:07 MPV 9.7 fL (7.4-10.4) 05/15/23 05:07 Neut % (Auto) 85.1 % 05/15/23 05:07 Lymph % (Auto) 9.2 % 05/15/23 05:07 [place] % (Auto) 5.3 % 05/15/23 05:07 Eos % (Auto) 0.0 % 05/15/23 05:07 Baso % (Auto) 0.1 % 05/15/23 05:07 Neut # (Auto) 7.32 10^3/uL (1.8-7.7) 05/15/23 05:07 Lymph # (Auto) 0.8 10^3/uL (0.8-4.8) 05/15/23 05:07 [place] # (Auto) 0.5 10^3/uL (0.2-0.9) 05/15/23 05:07 Eos # (Auto) 0.0 10^3/uL (0.0-0.8) 05/15/23 05:07 Baso # (Auto) 0.0 10^3/uL (0.0-0.1) 05/15/23 05:07 Nucleated RBC % (auto) 0 % 05/15/23 05:07 Nucleated RBCs # 0.0 /100WBC 05/15/23 05:07 Sodium 137 mmol/L (136-145) 05/15/23 05:07 Potassium 3.9 mmol/L (3.5-5.1) 05/15/23 05:07 Chloride 106 mmol/L (98-107) 05/15/23 05:07 Carbon Dioxide 22 mmol/L (22-29) 05/15/23 05:07 Anion Gap 12.9 (5-19) 05/15/23 05:07 BUN 15 mg/dL (8-23) 05/15/23 05:07 Creatinine 1.2 mg/dL (0.7-1.2) 05/15/23 05:07 GFR Calculation Not Reportable 05/15/23 05:07 Glucose 145 mg/dL (65-115) H 05/15/23 05:07 Calculated Osmolality 287 mOsm/kg (285-295) 05/15/23 05:07 Calcium 7.9 mg/dL (8.5-10.5) L 05/15/23 05:07 Phosphorus 2.2 mg/dL (2.5-4.5) L 05/15/23 05:07 Magnesium 2.0 mg/dL (1.7-2.3) 05/15/23 05:07 Total Bilirubin 0.4 mg/dL (0.15-1.2) 05/15/23 05:07 AST 31 U/L (0-40) 05/15/23 05:07 ALT 89 U/L (0-41) H 05/15/23 05:07 Alkaline Phosphatase 91 U/L (40-130) 05/15/23 05:07 Total Protein 5.4 g/dL (6.6-8.7) L 05/15/23 05:07 Albumin 3.3 g/dL (3.5-5.2) L 05/15/23 05:07 Globulin 2.1 g/dL (1.3-4.6) 05/15/23 05:07 Lipase 69 U/L (13-60) H 05/13/23 16:55 Urine Color Yellow (Yellow) 05/13/23 16:55 Urine Appearance Cloudy (CLEAR) A 05/13/23 16:55 Urine pH 8 (5-7) H 05/13/23 16:55 Ur Specific [place] 1.010 (1.005-1.030) 05/13/23 16:55 Urine Protein Neg (Negative) 05/13/23 16:55 Urine Glucose (UA) Norm (Normal) 05/13/23 16:55 Urine Ketones Negative (Negative) 05/13/23 16:55 Urine Blood Neg (Negative) 05/13/23 16:55 Urine Nitrate Negative (Negative) 05/13/23 16:55 Urine Bilirubin Neg (Negative) 05/13/23 16:55 Prot Sulfosalicylic Acd Negative (Negative) 05/13/23 16:55 Urine Urobilinogen Norm mg/dL (Negative) 05/13/23 16:55 Ur Leukocyte Esterase Negative (Negative) 05/13/23 16:55 Urine RBC 0-4 /hpf (0-2) H 05/13/23 16:55 Urine WBC 0-4 /hpf (0-5) H 05/13/23 16:55 Ur Squamous Epith Cells 0-4 /hpf (0-5) H 05/13/23 16:55 Amorphous Sediment 4+ /hpf 05/13/23 16:55 Urine Bacteria Trace /hpf (NONE) 05/13/23 16:55 Procedures Performed Laparoscopic cholecystectomy Vitals Last Vital Signs Temp 98.5 F 05/15/23 07:21 Pulse 76 05/15/23 07:21 Resp 18 05/15/23 07:21 BP 127/83 05/15/23 07:21 Pulse Ox 97 05/15/23 07:21 O2 Del Method Room Air 05/15/23 07:21 O2 Flow Rate 2 05/14/23 15:48 Discharge Plan Discharge Patient Disposition: Home Condition: Stable Prescriptions: New Stool Softener-Laxative 8.6-50 mg Tablet 2 tab PO DAILY Qty: 100 0RF Rx Instructions: Take until constipation resolves. hydrocodone-acetaminophen 7.5-325 mg Tablet 1 tab PO Q4H PRN (Reason: Moderate Pain) 5 Days Qty: 12 0RF Continued O[facility] 50 mg-15 unit- 4.5 mg-2.5 mg tablet,chewable 2 tab PO DAILY Rx Instructions: PT BROUGTH IN A MEDICATION LIST PreserVision AREDS [phone] capsule 1 cap PO BID Rx Instructions: PT BROUGTH IN A MEDICATION LIST aspirin [Adult Aspirin Regimen] 81 mg tablet,delayed release (DR/EC) 81 mg PO DAILY Rx Instructions: PT BROUGTH IN A MEDICATION LIST omeprazole 20 mg capsule,delayed release(DR/EC) 20 mg PO DAILY Rx Instructions: PT BROUGTH IN A MEDICATION LIST zinc 50 mg tablet 50 mg PO DAILY Rx Instructions: PT BROUGTH IN A MEDICATION LIST vitamin E 200 unit capsule 200 unit PO DAILY Rx Instructions: PT BROUGTH IN A MEDICATION LIST prednisone 5 mg tablet See Rx Instructions .ROUTE .COMPLEX Qty: 90 1RF Dose Instruction: TAKE 1 TABLET BY MOUTH EVERY DAY Rx Instructions: TAKE 1 TABLET BY MOUTH EVERY DAY clonazepam 1 mg tablet 1 mg PO DAILY 90 Days Qty: 90 3RF sildenafil 100 mg tablet 100 mg PO PRN PRN (Reason: sexual activity) Rx Instructions: 1 hour before intercourse on empty stomach. NO NITROGLYCERIN! gabapentin 300 mg capsule 300 mg PO DAILY ezetimibe 10 mg tablet 10 mg PO DAILY topiramate 50 mg tablet 50 mg PO DAILY venlafaxine 75 mg capsule,extended release 24hr 75 mg PO DAILY naproxen sodium 220 mg Capsule 220 mg PO BID PRN (Reason: pain) Discharge Orders: Discharge Order (Routine); Ordered 05/15/23 Ordered By: Barry Card Referrals: Pravin Fay DO [Physician] - 2 weeks James Barroso MD [Primary Care Provider] - 05/20/23 1:30 pm Discharge Diet: Advance as tolerated and Usual diet Discharge Activity: Resume usual activity and Increase activity as tolerated Patient Instructions: Hydrocodone/Acetaminophen (By mouth), Laxative, Stimulant Combination (By mouth), Cholecystitis (DC), Opioid Safety, Post Anesthesia Care Activity Restrictions/Additional Instructions: 1. Increase activity as tolerated. 2. Increase oral intake with goal to resume usual diet as tolerated. 3. Monitor bowel movement. Continue stool softener until constipation resolves. 4. Follow up with PCP and general surgery clinic. 5. Take medications as prescribed. Discharge Attestations Time Spent in Discharge Care*: greater than 30 min Quality Metrics Clinical Quality Measures [ No reported AMI, CVA or VTE this stay] Coding Level of Care Code Acute Code for Chg Fwd Diagnoses Acute cholecystitis K81.0
--- NOTE | 2023-05-15 11:13 | PC.CHAP ---
Pastoral Care Encounter/Spiritual Assessment Type of Contact [] Declined vp global visit [] Patient/Family/Request visit [] Outpatient visit [] Follow-up visit [] Physician referral [] Code/Alert [x] Routine visit [] Staff referral [] Actively dying [] Patient sleeping [x] Family support [] [] Out of room [] Palliative care [] [] Receiving care in room [] Pre-surgical visit [] Trauma [] Long length of stay [] ICU visit [] Other: Relational/Emotional Strength [x] Patient feels connected with others/family/visitors/staff [] Distress [] Loneliness/isolation [] Abandonment Spirituality of Patient [] Person of Gela [] Attends Anglican of their [place]ela [x] Believes in Prayer [] Reads Bible or Moravian materials [] There are Spiritual issues to be addressed Broadband Technician Interventions [x] Prayer [x] Active listening [] Non-anxious presence [] Spiritual/emotional support [] Crisis/trauma care [] Spiritual counseling [] Bereavement support [] Provided bereavement packet [] Provided Bible/devotional materials [] Provided toy/stuffed animal, coloring book to patient or family member [] Provided Communion [] Anointing/[place] [] Salvation [] Completed spiritual assessment [] Other: Impact on Illness or Injury [] Angry [] Fearful [] Anxious [] Often cries [] Exhaustion [] Unable to work [] Unable to attend scientology [] Unable to walk/stand [] Unable to read [] Unable to drive [] Unable to eat/drink [] Unable to sleep [] Unable to be with family [] Patient intubated [] Other: Summary Time spent with patient 10 min
[2023-05-15 12:06] VITALS: BP 120/74; PULSE 73; RESP 18; TEMP 36.7; O2SAT 96
[2023-05-15 12:37] VITALS: BP 120/74; PULSE 73; RESP 18; TEMP 36.7; O2SAT 96
== END 2023-05-15 12:39 | disposition home or self-care (01) ==
LOC: ER 21:34 → MEDSURG 22:21
PROVIDERS: Internal Medicine; Admitting Provider Surgery; Emergency Provider Emergency Medicine; PCP Family Medicine; Visit Provider Internal Medicine
PROC: 0FT44ZZ Resection of Gallbladder, Percutaneous Endoscopic Approach (ICD-10-PCS; CPT 47562; principal; 2023-05-14 12:00)
DX: K80.10 Calculus of gallbladder with chronic cholecystitis without obstruction (principal); G20.A1 Parkinson's disease without dyskinesia, without mention of fluctuations; H54.7 Unspecified visual loss; Z86.73 Personal history of transient ischemic attack (TIA), and cerebral infarction without residual deficits; K57.30 Diverticulosis of large intestine without perforation or abscess without bleeding; N28.1 Cyst of kidney, acquired; K40.90 Unilateral inguinal hernia, without obstruction or gangrene, not specified as recurrent; K76.0 Fatty (change of) liver, not elsewhere classified; Z87.891 Personal history of nicotine dependence; Z79.82 Long term (current) use of aspirin
CPT/HCPCS: 47562; 36415; 51702; 51798; 74177; 76705; 80053; 81001; 83690; 83735; 84100; 85025; 88304; 93005; 96365; 96375; 96376; 99285; C9113; G0378; J1100; J1170; J2270; J2405; J2543; J2704; J2710; J3010; J3490; J7030; J7512; Q9967

== ENCOUNTER → 2023-05-29 12:54 | Outpatient (BNVA) | payer MEDICARE, SELFPAY | PROVIDERS: PCP Family Medicine; Visit Provider Surgery | DX: Z90.49 Acquired absence of other specified parts of digestive tract (principal); Z98.890 Other specified postprocedural states | CPT/HCPCS: 99024 ==

== ENCOUNTER → 2023-06-03 08:38 | Outpatient (BNVA) | payer MEDICARE, SELFPAY | PROVIDERS: PCP Family Medicine; Visit Provider Specialist | DX: G43.711 Chronic migraine without aura, intractable, with status migrainosus (principal); G20.A1 Parkinson's disease without dyskinesia, without mention of fluctuations; G47.30 Sleep apnea, unspecified | CPT/HCPCS: 99213 ==

== ENCOUNTER → 2023-10-01 13:05 | Outpatient (BNVA) | payer MEDICARE, SELFPAY | PROVIDERS: PCP Family Medicine; Visit Provider Nurse Practitioner Family | DX: L21.8 Other seborrheic dermatitis (principal); L30.4 Erythema intertrigo; L89.321 Pressure ulcer of left buttock, stage 1 | CPT/HCPCS: 99214 ==

== ENCOUNTER → 2023-10-02 13:53 | Outpatient (BNVA) | payer MEDICARE, SELFPAY | PROVIDERS: PCP Family Medicine; Visit Provider Surgery | DX: Z90.49 Acquired absence of other specified parts of digestive tract (principal); Z98.890 Other specified postprocedural states | CPT/HCPCS: 99214 ==

== ENCOUNTER → 2023-10-25 09:17 | Outpatient (BNVA) | payer MEDICARE, SELFPAY | PROVIDERS: PCP Family Medicine; Visit Provider Specialist | DX: G20.A1 Parkinson's disease without dyskinesia, without mention of fluctuations (principal); G43.711 Chronic migraine without aura, intractable, with status migrainosus; G62.9 Polyneuropathy, unspecified; H54.7 Unspecified visual loss | CPT/HCPCS: 99214 ==

== ENCOUNTER → 2024-03-25 10:26 | Outpatient (BNVA) | payer MEDICARE, SELFPAY | PROVIDERS: PCP Family Medicine; Visit Provider Surgery | DX: Z90.49 Acquired absence of other specified parts of digestive tract (principal); K43.2 Incisional hernia without obstruction or gangrene | CPT/HCPCS: 99213 ==

== ENCOUNTER → 2024-04-29 13:14 | Outpatient (BNVA) | payer MEDICARE, SELFPAY | PROVIDERS: PCP Family Medicine; Visit Provider Specialist | DX: G20.A1 Parkinson's disease without dyskinesia, without mention of fluctuations (principal); G43.711 Chronic migraine without aura, intractable, with status migrainosus; G62.9 Polyneuropathy, unspecified; H54.7 Unspecified visual loss | CPT/HCPCS: 99214 ==

== ENCOUNTER 2024-05-17 11:05 | Emergency (ER) | payer MEDICARE, SELFPAY ==
[2024-05-17 11:07] VITALS: BP 139/80; PULSE 103; RESP 17; TEMP 37.2; O2SAT 97; BMI 24.7
--- NOTE | 2024-05-17 11:24 | CTR_ITS ---
PROCEDURE INFORMATION: Exam: CT Head Without Contrast Exam date and time: 05/17/2024 11:49 AM Age: 84 years old Clinical indication: Altered mental status/memory loss; Additional info: AMS TECHNIQUE: Imaging protocol: Computed tomography of the head without contrast. Radiation optimization: All CT scans at this facility use at least one of these dose optimization techniques: automated exposure control; mA and/or kV adjustment per patient size (includes targeted exams where dose is matched to clinical indication); or iterative reconstruction. COMPARISON: CT head wo con* [id number] 06/07/2022 3:23 PM RADIATION DOSE METRICS: Total DLP (mGy-cm): 1158.38 FINDINGS: Brain: Bilateral periventricular white matter hypodensities, consistent with chronic ischemic small vessel disease. No recent infarct, intracranial bleed or mass effect. Cerebral ventricles: No ventriculomegaly. Paranasal sinuses: Visualized sinuses are unremarkable. No fluid levels. Mastoid air cells: Visualized mastoid air cells are well aerated. Orbital cavities: Left eye globe prosthesis. Post right cataract surgery. Bones: Chronic fracture deformity of the right lamina papyracea. Soft tissues: Unremarkable. CT/CT head wo con* [id number] IMPRESSION: No large territorial infarct or intracranial bleed.
--- NOTE | 2024-05-17 11:24 | XRR_ITS ---
PROCEDURE INFORMATION: Exam: XR Chest Exam date and time: 05/17/2024 11:46 AM Age: 84 years old Clinical indication: Injury or trauma; Fall; Blunt trauma (contusions or hematomas); Additional info: AMS TECHNIQUE: Imaging protocol: Radiologic exam of the chest. Views: 1 view. COMPARISON: CT chest abd pel w con* 03/18/2020 7:48 PM FINDINGS: Lungs: Bibasilar atelectasis. No focal consolidation. Pleural spaces: Unremarkable. No pleural effusion. No pneumothorax. Heart/Mediastinum: Prominent left epicardial fat pad. Vasculature: Unfolding of the thoracic aorta. Diaphragm: Elevation of the left hemidiaphragm. Bones/joints: Demineralization of the visualized bones. Mild degenerative disease of bilateral acromioclavicular and bilateral glenohumeral joints. XR/XR chest 1V portable [id number] IMPRESSION: No acute cardiopulmonary process.
--- NOTE | 2024-05-17 11:25 | ECG_ITS ---
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 Measurements Intervals [place] Rate: 100 P: 58 FL: 172 QRS: 8 QRSD: 89 T: 147 QT: 290 QTc: 375 Interpretive Statements SINUS TACHYCARDIA LOW QRS VOLTAGE IN PRECORDIAL LEADS [QRS DEFLECTION < 1.0 mV IN CHEST LEADS] NONSPECIFIC ST & T-WAVE ABNORMALITY Compared to ECG 05/13/2023 21:44:41 Sinus rhythm no longer present T-wave abnormality still present Electronically Signed On 05-18-2024 14:10:38 CDT by Keaton Roper M.D. [id number]
[2024-05-17 11:35] LABS: Basophils % 0.2 %; Eosinophils # 0.1 10^3/uL (0.0-0.8); Hematocrit 44.1 % (37-53); Lymphocytes # 1.5 10^3/uL (0.8-4.8); Lymphocytes % 12.9 %; Mean Corpuscular HGB Conc 31.7 g/dL (30-55); Mean Corpuscular Hemoglobin 30.2 pg (27-33); Mean Corpuscular Volume 95.2 fl (82-101); Mean Platelet Volume 9.5 fL (7.4-10.4); Monocytes % 8.3 %; Neutrophils # 9.16 10^3/uL (1.8-7.7); Neutrophils % 77.1 %; Nucleated Red Blood Cells % 0 %; Platelet Count 206 10^3/cmm (157-399); Red Blood Count 4.63 10^6/uL (3.85-5.65); Red Cell Distribution Width 13.5 % (12.1-15.1); White Blood Count 11.87 10^3/uL (3.29-11.43)
[2024-05-17 11:56] LABS: Alanine Aminotransferase 9 U/L (0-41); Albumin Level 4.4 g/dL (3.5-5.2); Alkaline Phosphatase 114 U/L (40-130); Anion Gap 18.3 (5-19); Aspartate Amino Transferase 16 U/L (0-40); Blood Urea Nitrogen 17 mg/dL (8-23); Calcium 9.1 mg/dL (8.5-10.5); Carbon Dioxide 22 mmol/L (22-29); Chloride 106 mmol/L (98-107); Globulin 2.1 g/dL (1.3-4.6); Glucose 118 mg/dL (65-115); Osmolality Calculated 297 mOsm/kg (285-295); Potassium 4.3 mmol/L (3.5-5.1); Sodium 142 mmol/L (136-145); Total Bilirubin 0.6 mg/dL (0.15-1.2); Total Protein 6.5 g/dL (6.6-8.7); Troponin(5th) Baseline 22 ng/L (0-15)
--- NOTE | 2024-05-17 12:36 | ED_ITS ---
HPI - Altered Mental Status 2 General: Chief Complaint: Altered Mental Status Stated Complaint: AMS; falls Time Seen by Provider: 05/17/24 11:20 History of Present Illness: Patient presents to the ER after falling 3 times since Saturday. Patient his head and shoulder on the fall. Disc abrasion on the left side of his face and his eye. Patient is able to answer most questions but his responses delayed. Patient is able to tell me his name and date of but he is unable to state for sure where he is at or the year. Patient states is 1940. Patient is legally blind. Related Data Home Medications Medication Instructions Recorded Confirmed aspirin 81 mg tablet,delayed 81 mg PO DAILY 11/24/19 04/29/24 release (Adult Aspirin Regimen) omeprazole 20 mg capsule,delayed 20 mg PO DAILY 11/24/19 04/29/24 release vit C 50 mg-E 15 unit-zinc cit 4.5 2 tab PO DAILY 11/24/19 04/29/24 mg-lutein 2.5 mg-zeaxan chew tablet ([facility]) vitamin E 200 unit capsule 200 unit PO DAILY 11/24/19 04/29/24 zinc 50 mg tablet 50 mg PO DAILY 11/24/19 04/29/24 ezetimibe 10 mg tablet 10 mg PO DAILY 05/14/23 04/29/24 naproxen sodium 220 mg capsule 220 mg PO BID PRN pain 05/14/23 04/29/24 sildenafil 100 mg tablet 100 mg PO PRN PRN sexual activity 05/14/23 04/29/24 hydrocodone 7.5 mg-acetaminophen tab PO 06/03/23 04/29/24 325 mg tablet nystatin 100,000 unit/gram topical g topical 06/03/23 04/29/24 cream ondansetron HCl 4 mg tablet tab PO 06/03/23 04/29/24 triamcinolone acetonide 0.1 % g topical 06/03/23 04/29/24 topical cream Previous Rx's Medication Instructions Recorded prednisone 5 mg tablet See Rx Instructions .Route 10/02/22 .COMPLEX #90 tabs sennosides 8.6 mg-docusate sodium 2 tab PO DAILY #100 tabs 05/15/23 50 mg tablet (Stool Softener-Laxative) venlafaxine 75 mg capsule,extended 75 mg PO DAILY #90 caps 10/29/23 release 24 hr amitriptyline 25 mg tablet 25 mg PO DAILY #90 tabs 04/29/24 carbidopa 25 mg-levodopa 100 mg 1 tab PO TID #360 tabs 04/29/24 tablet clonazepam 1 mg tablet 1 mg PO DAILY 90 days #90 tabs 04/29/24 gabapentin 300 mg capsule 300 mg PO TID 90 days #270 caps 04/29/24 topiramate 50 mg tablet See Rx Instructions .Route 04/29/24 .COMPLEX #90 tabs venlafaxine 150 mg 150 mg PO DAILY #90 caps 04/29/24 capsule,extended release 24 hr (Effexor XR) Allergies Allergy/AdvReac Type Severity Reaction Status Date / Time No Known Allergies Allergy Verified 05/17/24 11:18 Review of Systems 2 General: Reports: 10 or more systems reviewed and unremarkable except in HPI and below PFSH ED 2 PFSH: Medical History Pneumothorax Detached retina Blindness Erectile dysfunction Stroke Parkinson disease Surgical History Hx laparoscopic cholecystectomy 05/14/23 Dr. Fay H/O transurethral destruction of bladder lesion Family History Father , 70 CAD (coronary artery disease) Stroke Mother , 84 Stroke Social History Smoking and tobacco/nicotine status: former use of tobacco/nicotine Alcohol intake: never Substance/Drug Use: never Marital status: Life Partner Current occupational status: retired Physical Exam 2 Const: COMMON NORMALS: no acute distress, average body habitus, no limitations, healthy appearing, alert and well nourished HENMT: COMMON NORMALS: normocephalic, atraumatic, hearing grossly normal bilaterally, external ears normal, Normal external nose present and moist oral mucous membranes HEAD & SCALP: normocephalic and atraumatic NOSE: Normal external nose present EXTERNAL EAR: Yes external ears normal Neck/C-Spine: COMMON NORMALS: full ROM, no lymphadenopathy, supple, no meningeal signs, no JVD and Thyroid normal THYROID: Thyroid normal Chest: COMMONS NORMALS: normal inspection of the chest and normal palpation of entire chest wall Resp: COMMON NORMALS: normal respiratory effort, No retractions, No use of accessory muscles and clear to auscultation bilaterally AUSCULTATION: clear to auscultation bilaterally Cardio: COMMON NORMALS: no JVD, regular rate, regular rhythm, S1 normal heart sound present, S2 normal heart sound present, No gallops present (Cardio), No clicks present (Cardio), No murmurs present (Cardio) and No rub (Cardio) R ATE: regular rate RHYTHM: regular rhythm HEART SOUNDS: S1 normal heart sound present and S2 normal heart sound present GI: COMMON NORMALS: Normal to inspection, nondistended, normoactive bowel sounds present, Soft to palpation, non-tender, No hepatosplenomegaly present and no masses PALPATION: Yes Soft to palpation and Yes No hepatosplenomegaly present Neuro: SENSORIUM/ORIENTATION: Yes alert MENINGEAL SIGNS: Yes no meningeal signs Course 2 Vital Signs: Vital signs: Vital Signs Temperature 98.9 F 05/17/24 11:07 Pulse Rate 93 05/17/24 14:00 Respiratory Rate 14 05/17/24 14:00 Blood Pressure 130/85 05/17/24 14:00 Pulse Oximetry 96 05/17/24 14:00 Oxygen Delivery Me thod Room Air 05/17/24 11:07 MDM - Altered Mental Status Medical Decision Making Head CT negative, chest x-ray negative, lab work unremarkable, white count 11.8, BUN/creatinine seventeen 1.4, urinalysis negative, these results was discussed with the patient and family members it may be just due to a worsening of his Parkinson's disease making him a high fall risk and confused. Otherwise no reason has been found. Patient be discharged and referred back to his PCP/neurologist. Medical Records I reviewed the patient's medical records. Lab Data I reviewed the patient's lab results. 05/17/24 11:27 05/17/24 11:27 Radiology Impressions Chest X-Ray 05/17/24 11:24 IMPRESSION: No acute cardiopulmonary process. Head CT 05/17/24 11:24 IMPRESSION: No large territorial infarct or intracranial bleed. Laboratory Results WBC 11.87 10^3/uL (3.29-11.43) H 05/17/24 11:27 RBC 4.63 10^6/uL (3.85-5.65) 05/17/24 11: Hgb 14.00 g/dL (11.27-16.99) 05/17/24 11: Hct 44.1 % (37-53) 05/17/24 11: MCV 95.2 fl (82-101) 05/17/24 11: MCH 30.2 pg (27-33) 05/17/24 11: MCHC 31.7 g/dL (30-55) 05/17/24 11: RDW 13.5 % (12.1-15.1) 05/17/24 11: Plt Count 206 10^3/cmm (157-399) 05/17/24 11: MPV 9.5 fL (7.4-10.4) 05/17/24 11: Neut % (Auto) 77.1 % 05/17/24 11: Lymph % (Auto) 12.9 % 05/17/24 11: Tift % (Auto) 8.3 % 05/17/24 11: Eos % (Auto) 1.0 % 05/17/24 11: Baso % (Auto) 0.2 % 05/17/24 11: Neut # (Auto) 9.16 10^3/uL (1.8-7.7) H 05/17/24 11: Lymph # (Auto) 1.5 10^3/uL (0.8-4.8) 05/17/24 11: Tift # (Auto) 1.0 10^3/uL (0.2-0.9) H 05/17/24 11: Eos # (Auto) 0.1 10^3/uL (0.0-0.8) 05/17/24 11: Baso # (Auto) 0.0 10^3/uL (0.0-0.1) 05/17/24 11: Nucleated RBC % (auto) 0 % 05/17/24 11: Nucleated RBCs # 0.0 /100WBC 05/17/24 11: Sodium 142 mmol/L (136-145) 05/17/24 11: Potassium 4.3 mmol/L (3.5-5.1) 05/17/24 11: Chloride 106 mmol/L (98-107) 05/17/24 11:27 Carbon Dioxide 22 mmol/L (22-29) 05/17/24 11:27 Anion Gap 18.3 (5-19) 05/17/24 11:27 BUN 17 mg/dL (8-23) 05/17/24 11:27 Creatinine 1.4 mg/dL (0.7-1.2) H 05/17/24 11:27 GFR Calculation Not Reportable 05/17/24 11: Glucose 118 mg/dL (65-115) H 05/17/24 11:27 Calculated Osmolality 297 mOsm/kg (285-295) H 05/17/24 11:27 Calcium 9.1 mg/dL (8.5-10.5) 05/17/24 11:27 Total Bilirubin 0.6 mg/dL (0.15-1.2) 05/17/24 11:27 AST 16 U/L (0-40) 05/17/24 11: ALT 9 U/L (0-41) 05/17/24 11:27 Alkaline Phosphatase 114 U/L (40-130) 05/17/24 11:27 Troponin T Baseline 22 ng/L (0-15) H 05/17/24 11:27 Troponin T 120 Minute 19.56 ng/L (0-15) H 05/17/24 13:16 Delta Troponin T -2.44 ABS# (0-10) L 05/17/24 13:16 Total Protein 6.5 g/dL (6.6-8.7) L 05/17/24 11:27 Albumin 4.4 g/dL (3.5-5.2) 05/17/24 11: Globulin 2.1 g/dL (1.3-4.6) 05/17/24 11:27 Urine Color Yellow (Yellow) 05/17/24 12:50 Urine Appearance Clear (CLEAR) 05/17/24 12:50 Urine pH 6.0 (5-7) 05/17/24 12:50 Ur Specific [place] 1.009 (1.005-1.030) 05/17/24 12:50 Urine Protein Negative (Negative) 05/17/24 12:50 Urine Glucose (UA) Negative (Normal) 05/17/24 12:50 Urine Ketones Negative (Negative) 05/17/24 12:50 Urine Blood Negative (Negative) 05/17/24 12:50 Urine Nitrate Negative (Negative) 05/17/24 12:50 Urine Bilirubin Negative (Negative) 05/17/24 12:50 Urine Urobilinogen 0.2 mg/dL (Negative) 05/17/24 12:50 Ur Leukocyte Esterase Negative (Negative) 05/17/24 12:50 Urine RBC 0-2 /hpf (0-2) 05/17/24 12:50 Urine WBC 0-5 /hpf (0-5) 05/17/24 12:50 Ur Squamous Epith Cells 0-5 /hpf (0-5) 05/17/24 12:50 Amorphous Sediment Not Reportable 05/17/24 12:50 Urine Bacteria None seen /hpf (NONE) 05/17/24 12:50 Hyaline Casts 0.40 /lpf 05/17/24 12:50 All radiology interpretation(s) finalized by discharge Discharge Plan Discharge Patient Disposition: Home Clinical Impression: Acute confusion, Fall Condition: Stable Prescriptions: No Action [facility] 50 mg-15 unit- 4.5 mg-2.5 mg tablet,chewable 2 tab PO DAILY Rx Instructions: PT BROUGTH IN A MEDICATION LIST aspirin [Adult Aspirin Regimen] 81 mg tablet,delayed release (DR/EC) 81 mg PO DAILY Rx Instructions: PT BROUGTH IN A MEDICATION LIST omeprazole 20 mg capsule,delayed release(DR/EC) 20 mg PO DAILY Rx Instructions: PT BROUGTH IN A MEDICATION LIST zinc 50 mg tablet 50 mg PO DAILY Rx Instructions: PT BROUGTH IN A MEDICATION LIST vitamin E 200 unit capsule 200 unit PO DAILY Rx Instructions: PT BROUGTH IN A MEDICATION LIST ondansetron HCl 4 mg tablet PO hydrocodone-acetaminophen 7.5-325 mg tablet PO nystatin 100,000 unit/gram cream topical triamcinolone acetonide 0.1 % cream topical amitriptyline 25 mg tablet 25 mg PO DAILY Qty: 90 3RF Rx Instructions: Take at bedtime carbidopa-levodopa 25-100 mg tablet 1 tab PO TID Qty: 360 3RF Rx Instructions: 2 in am, 1 noon and 1 in pm topiramate 50 mg tablet See Rx Instructions .ROUTE .COMPLEX Qty: 90 3RF Dose Instruction: TAKE 1 TABLET BY MOUTH DAILY Rx Instructions: TAKE 1 TABLET BY MOUTH DAILY gabapentin 300 mg capsule 300 mg PO TID 90 Days Qty: 270 3RF venlafaxine [Effexor XR] 150 mg capsule,extended release 24hr 150 mg PO DAILY Qty: 90 3RF clonazepam 1 mg tablet 1 mg PO DAILY 90 Days Qty: 90 3RF prednisone 5 mg tablet See Rx Instructions .ROUTE .COMPLEX Qty: 90 1RF Dose Instruction: TAKE 1 TABLET BY MOUTH EVERY DAY Rx Instructions: TAKE 1 TABLET BY MOUTH EVERY DAY venlafaxine 75 mg capsule,extended release 24hr 75 mg PO DAILY Qty: 90 3RF sildenafil 100 mg tablet 100 mg PO PRN PRN (Reason: sexual activity) Rx Instructions: 1 hour before intercourse on empty stomach. NO NITROGLYCERIN! ezetimibe 10 mg tablet 10 mg PO DAILY naproxen sodium 220 mg Capsule 220 mg PO BID PRN (Reason: pain) Stool Softener-Laxative 8.6-50 mg Tablet 2 tab PO DAILY Qty: 100 0RF Rx Instructions: Take until constipation resolves. Discharge Orders: Discharge ED (Routine); Ordered 05/17/24 Ordered By: Carlos Mcneal Referrals: James Barroso MD [Primary Care Provider] - 2 weeks Patient Instructions: Confusion Activity Restrictions/Additional Instructions: Evaluation in ER that included lab work, chest x-ray, head CT and urinalysis did not reveal any acute cause of your confusion or any reasons you have been falling more lately. This may be a progression of your Parkinson's disease however further testing may be warranted. Please follow-up with your family practice physician and/or your neurologist for further evaluation and treatment. Coding Level of Care Code ED Fiber Optic Splicer for Marzena Alvarado
[2024-05-17 13:17] LABS: Bilirubin Urine Negative (Negative); Blood Urine Negative (Negative); Glucose Urine UA Negative (Normal); Ketones Urine Negative (Negative); Leukocyte Esterase Urine Negative (Negative); Nitrate Urine Negative (Negative); Protein Urine Negative (Negative); Specific Gravity, Urine 1.009 (1.005-1.030); Urine Appearance Clear (CLEAR); Urine Color Yellow (Yellow); Urobilinogen Urine 0.2 mg/dL (Negative)
[2024-05-17 13:23] LABS: Add Urine Microscopic? YES; Bacteria Urine None Seen /hpf; RBC Urine 0-2 /hpf (0-2); Squamous Epithelial Cell Urine 0-5 /hpf (0-5); WBC Urine 0-5 /hpf (0-5)
--- NOTE | 2024-05-17 13:25 | ECG_ITS ---
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 Measurements Intervals [place] Rate: 91 P: 55 NM: 177 QRS: 5 QRSD: 94 T: 115 QT: 325 QTc: 400 Interpretive Statements SINUS RHYTHM LOW QRS VOLTAGE IN PRECORDIAL LEADS [QRS DEFLECTION < 1.0 mV IN CHEST LEADS] NONSPECIFIC ST & T-WAVE ABNORMALITY Compared to ECG 05/17/2024 11:12:34 Sinus tachycardia no longer present T-wave abnormality still present Electronically Signed On 05-18-2024 14:16:14 CDT by Keaton Roper M.D. [email or web address]
[2024-05-17 13:50] LABS: Troponin 5 2HR 19.56 ng/L (0-15); Troponin 5 2HR Delta -2.44 ABS# (0-10)
[2024-05-17 14:00] VITALS: BP 130/85; PULSE 93; RESP 14; O2SAT 96
[2024-05-17] MEDS: acetaminophen 500 mg Tablet 1000 MG PO (14:48)
[2024-05-17 14:50] VITALS: BP 128/83; PULSE 96; RESP 20; O2SAT 98
== END 2024-05-17 14:55 | disposition home or self-care (01) ==
PROVIDERS: Emergency Provider Emergency Medicine; PCP Family Medicine
DX: R41.0 Disorientation, unspecified (principal); S00.81XA Abrasion of other part of head, initial encounter; W19.XXXA Unspecified fall, initial encounter; Z86.73 Personal history of transient ischemic attack (TIA), and cerebral infarction without residual deficits; G20.A1 Parkinson's disease without dyskinesia, without mention of fluctuations; Z87.891 Personal history of nicotine dependence; Z79.82 Long term (current) use of aspirin
CPT/HCPCS: 36415; 70450; 71045; 80053; 81001; 84484; 85025; 93005; 99285

== ENCOUNTER → 2024-06-17 09:29 | Outpatient (BNVA) | payer MEDICARE, SELFPAY | PROVIDERS: PCP Family Medicine; Visit Provider Thoracic Surgery (Cardiothoracic Vascular Surgery) | DX: Z51.89 Encounter for other specified aftercare (principal) | CPT/HCPCS: 99213 ==

== ENCOUNTER → 2024-07-09 11:09 | Outpatient (BNVA) | payer MEDICARE, SELFPAY | PROVIDERS: PCP Family Medicine; Referring Provider Family Medicine; Visit Provider Specialist | DX: I63.9 Cerebral infarction, unspecified (principal); G62.9 Polyneuropathy, unspecified; Z09 Encounter for follow-up examination after completed treatment for conditions other than malignant neoplasm; G43.711 Chronic migraine without aura, intractable, with status migrainosus; H54.0X55 Blindness right eye category 5, blindness left eye category 5; G20.A2 Parkinson's disease without dyskinesia, with fluctuations | CPT/HCPCS: 99215 ==

== ENCOUNTER 2024-07-23 15:05 | Outpatient (CLI) | payer MEDICARE, SELFPAY ==
--- NOTE | 2024-07-23 15:15 | MR_ITS ---
WS: [id number] MRI BRAIN WITHOUT CONTRAST HISTORY: I63.9 - Cerebral infarction, unspecified COMPARISON: CT head 05/17/2024, MRI brain 12/27/2020 TECHNIQUE: Diffusion imaging, multiplanar T1, T2 and FLAIR imaging obtained. Diffusion imaging is normal. No acute infarct. New area of increased T2 signal in the superior can vacuum tester ior RIGHT cerebellum that was not present on 12/27/2020. Additional periventricular and subcortical mi ld small vessel ischemic changes have slightly progressed since the prior study from 2020. No hemorrh age. Mild symmetric atrophy. Ventricles and extra-axial spaces are normal. No inferior displacement of cerebellar tonsils. The sella turcica and pituitary gland are unremarkabl e. Dural venous sinuses and [place] demonstrate no abnormality on this unenhanced studies. Norm al flow voids. Paranasal sinuses: Clear. Mastoid air cells: Normal. Calvarium and scalp: Intact. LEFT globe prosthesis. MR/MR head wo con* [id number] IMPRESSION: 1. No diffusion abnormality or acute infarct. 2. New focal area of prior ischemia in the superior posterior RIGHT cerebellum since 2020. 3. Very mild progression of small vessel ischemic disease in the periventricul ar and subcortical white matter distribution. 4. No hemorrhage.
--- NOTE | 2024-07-23 16:00 | MR_ITS ---
WS: [id number] MRA ANGIOGRAPHY [place] HISTORY: I63.9 - Cerebral infarction, unspecified COMPARISON: None available. TECHNIQUE: 3-D MR angiography is performed of the [place]. All images are reviewed including source images. Small caliber distal RIGHT vertebral artery. LEFT vertebral artery is tortuous and extends to the RIG HT of midline. Normal basilar artery. Posterior cerebral arteries are normal size. No occlusions. Dom inant RIGHT posterior communicating artery. Small caliber but patent LEFT posterior communicating art alem. Intracranial carotid arteries normal size. No significant or high-grade stenosis. No aneurysms. Middl e cerebral arteries are both patent. No occlusions. No significant paucity of arterial distribution d istally. Normal anterior cerebral arteries. MR/MR angio head wo con [id number] IMPRESSION: 1. Small caliber but patent distal RIGHT vertebral artery. 2. No intracranial common carotid artery occlusion or stenosis. No aneurysm. 3. Dominant RIGHT posterior communicating artery.
--- NOTE | 2024-07-23 16:15 | MR_ITS ---
WS: [id number] MRA CAROTID ARTERIES HISTORY: I63.9 - Cerebral infarction, unspecified COMPARISON: None available. TECHNIQUE: MRA is performed with intravenous gadolinium. MIP and source images are reviewed. Right: No significant stenosis or occlusion involving the cervical carotid artery. Bifurcation is int act. Intracranial carotid artery is tortuous but patent. Left: No significant stenosis or occlusion. Mildly tortuous internal carotid artery. Subclavian Arteries: Proximal LEFT subclavian artery is not identified. May be occluded or this may b e an artifact. The RIGHT subclavian artery is normal. Vertebral Arteries: Small caliber RIGHT vertebral artery throughout its course. Vertebral artery is t ortuous and only partially visualized. LEFT vertebral artery is also tortuous. MR/MR angio neck w con* [id number] IMPRESSION: 1. Suboptimal image quality. 2. No significant or high-grade stenosis in the cervical carotid arteries. 3. Nonvisualization of the proximal LEFT subclavian artery. Recommend follow-u p CT angiogram. CT angiogram can be performed of the carotid arteries or the ao rtic arch with attention to the subclavian arteries. 4. Diffusely small caliber RIGHT vertebral artery is tortuous. Poorly visualiz ed throughout its course.
[2024-07-23] MEDS: gadobenate dimeglumine 20 mL vial 17 ML IV (16:59)
== END 2024-07-23 15:06 | disposition home or self-care (01) ==
LOC: RAD 15:08
PROVIDERS: PCP Family Medicine; Visit Provider Specialist
DX: I63.541 Cerebral infarction due to unspecified occlusion or stenosis of right cerebellar artery (principal); I65.03 Occlusion and stenosis of bilateral vertebral arteries; G20.C Parkinsonism, unspecified; H54.7 Unspecified visual loss; G62.9 Polyneuropathy, unspecified
CPT/HCPCS: 70544; 70548; 70551; A9577

== ENCOUNTER 2024-08-13 13:30 | Outpatient (CLI) | payer MEDICARE, SELFPAY ==
--- NOTE | 2024-08-13 14:15 | CT_ITS ---
WS: [id number] CT ANGIOGRAM CAROTID ARTERIES HISTORY: I63.9 - Cerebral infarction, unspecified TECHNIQUE: CT angiogram is performed of the carotid arteries. During arterial injection imaging is ob tained from the skull base to the aortic arch in 1.25 mm imaging. Coronal and sagittal reformats are submitted, MIP imaging also reviewed. Additional multiplanar reformats of the carotid arteries are mota bmitted. NASCET criteria utilized. All CT scans at [facility] use at least one of these dose optimization techniques: automated exposure control; mA and/or kV adjustment per patient size (includ es targeted exams where dose is matched to clinical indication); or iterative reconstruction. CONTRAST: Omnipaque 350; 100 mL IV. DLP: 231.22 mGy.cm COMPARISON: MR angiogram 07/23/2024 Right carotid: Common carotid artery: Arises normally from the innominate artery. No significant plaque or stenosis. Internal carotid artery: No plaque or stenosis. External carotid artery: Patent. Left carotid: Common carotid artery: Arises normally from the aortic arch. No significant stenosis. Internal carotid artery: Small amount of calcified plaque at the bifurcation with no stenosis. External carotid artery: Patent. Right vertebral artery: Small caliber but patent. Left vertebral artery: Dominant. Tortuous with a prominent loop just past the origin. Subclavian arteries: Both subclavian arteries are patent. RIGHT subclavian artery is mildly ectatic w ith no stenosis or thrombus. Better visualization of the LEFT subclavian artery as compared to the pr ior MR angiogram. There is a small amount of plaque in the proximal subclavian artery with no stenosi s. Upper thorax: RIGHT apical fibrosis and pleural thickening. Thyroid gland: Normal. Osseous structures: Moderate cervical spondylosis. Mild anterior wedging of T2 and T3. Skull base: Negative. CT/CT angio neck [id number] IMPRESSION: 1. No significant cervical carotid artery stenosis. Small amount of plaque at the bifurcation of the LEFT ICA. 2. Better visualization of the LEFT subclavian artery as compared to the MR an giogram. Mildly tortuous with a small amount of thrombus but no significant alex nosis. 3. Dominant LEFT vertebral artery.
[2024-08-13 14:35] LABS: Blood Urea Nitrogen 14 mg/dL (8-23)
[2024-08-13] MEDS: iohexol 350 mg/mL 500 mL Btl (per mL) IV (14:45)
== END 2024-08-13 13:31 | disposition home or self-care (01) ==
LOC: RAD 13:35
PROVIDERS: PCP Family Medicine; Visit Provider Specialist
DX: I63.9 Cerebral infarction, unspecified (principal); I65.22 Occlusion and stenosis of left carotid artery; I77.1 Stricture of artery; R93.89 Abnormal findings on diagnostic imaging of other specified body structures; I70.8 Atherosclerosis of other arteries; M47.892 Other spondylosis, cervical region; M48.54XA Collapsed vertebra, not elsewhere classified, thoracic region, initial encounter for fracture
CPT/HCPCS: 70498; 82565; 84520

== ENCOUNTER → 2024-08-19 09:25 | Outpatient (BNVA) | payer MEDICARE, SELFPAY | PROVIDERS: PCP Family Medicine; Visit Provider Specialist | DX: I63.9 Cerebral infarction, unspecified (principal); G62.9 Polyneuropathy, unspecified; H54.7 Unspecified visual loss; G20.A1 Parkinson's disease without dyskinesia, without mention of fluctuations; G43.711 Chronic migraine without aura, intractable, with status migrainosus; H54.0X55 Blindness right eye category 5, blindness left eye category 5; G20.A2 Parkinson's disease without dyskinesia, with fluctuations | CPT/HCPCS: 99214 ==

== ENCOUNTER → 2024-09-15 09:35 | Outpatient (BNVA) | payer MEDICARE, SELFPAY | PROVIDERS: PCP Family Medicine; Visit Provider Surgery | DX: K43.2 Incisional hernia without obstruction or gangrene (principal) | CPT/HCPCS: 99214 ==

== ENCOUNTER → 2024-10-20 11:43 | Outpatient (BNVA) | payer MEDICARE, SELFPAY | PROVIDERS: PCP Family Medicine; Visit Provider Family Medicine | DX: Z01.818 Encounter for other preprocedural examination (principal) | CPT/HCPCS: 80053; 85025 ==

== ENCOUNTER 2024-11-03 13:47 | Emergency (ER) | payer MEDICARE, SELFPAY ==
[2024-11-03 13:49] VITALS: BP 144/82; PULSE 96; RESP 16; TEMP 36.8; O2SAT 94; BMI 25.0
--- NOTE | 2024-11-03 14:56 | CT_ITS ---
WS: [id number] CT THORACIC SPINE HISTORY: fall TECHNIQUE: Contiguous 2.5 mm axial images are reviewed to thoracic spine. Images are reformatted in sagittal and coronal planes. All CT scans at [facility] use at least one of these dose optimization techniques: automated exposure control; mA and/or kV adjustment per patient size (includes targeted exams where dose is matched to clinical indication); or iterative reconstruction. DLP: 1674.70 mGy.cm COMPARISON: 08/13/2024 Mild increase in thoracic kyphosis. Disc spaces are narrowed and desiccated. Mild anterior compression deformities of T2 and T3. Are stable. No acute fracture. No transverse process or spinous process fractures. The visualized ribs are normal. RIGHT apical scarring. Normal paravertebral soft tissues. Atherosclerosis aorta. 4.3 cm LEFT renal mass. Noted to be a cyst on the prior study from 2022. Prior cholecystectomy. CT/CT thoracic spin wo con* [id number] IMPRESSION: 1. No acute thoracic spine fracture 2. Mild anterior wedging of T2 and T3 is chronic.
--- NOTE | 2024-11-03 14:56 | CT_ITS ---
WS: [id number] CT LUMBAR SPINE, noncontrast. HISTORY: fall TECHNIQUE: Contiguous 2.0 mm axial imaging are performed. Sagittal and coronal reformats are submitted and reviewed. All CT scans at [facility] use at least one of these dose optimization techniques: automated exposure control; mA and/or kV adjustment per patient size (includes targeted exams where dose is matched to clinical indication); or iterative reconstruction. IV contrast: None DLP: 1674.70 mGy.cm COMPARISON: CT 05/13/2023 Mild increase in lumbar lordosis. Acute L2 compression fracture involving the superior endplate. No retropulsion of the vertebral body. Small Schmorl's node along the superior endplate of L3. L1-2: Normal. L2-3: Mild annular disc bulging. Mild subarticular recess encroachment. L3-4: Moderate annular disc bulging with encroachment upon the subarticular recesses. L4-5: Mild annular disc bulging with a central broad-based disc protrusion and bilateral facet arthritis. Mild central and bilateral subarticular recess stenosis. L5-S1: Central disc protrusion with contact on the S1 nerve roots. Normal sacrum. CT/CT lumbar spine wo con* [id number] IMPRESSION: 1. Acute, 10% compression fracture L2 without retropulsion. 2. No additional acute fracture. 3. Mild subarticular recess encroachment L2-3 and L3-4. 4. L4-5: Mild central and bilateral subarticular recess stenosis due to broad- based disc bulging and a central disc protrusion. 5. L5-S1: Central disc protrusion with contact on the S1 nerve roots.
--- NOTE | 2024-11-03 14:56 | CT_ITS ---
WS: [id number] CT HEAD NONCONTRAST HISTORY: fall TECHNIQUE: Contiguous axial imaging performed through the brain. Bone and soft tissue windows. Sagittal and coronal reformats reviewed. All CT scans at [facility] use at least one of these dose optimization techniques: automated exposure control; mA and/or kV adjustment per patient size (includes targeted exams where dose is matched to clinical indication); or iterative reconstruction. DLP: 1426.03 mGy.cm COMPARISON: 05/17/2024 No acute intracranial hemorrhage, midline shift or mass effect. Mild cerebral and cerebellar atrophy. Mild small vessel ischemic disease. No prior infarct. Ventricles: Normal size with no hydrocephalus. No inferior displacement of the cerebellar tonsils. Paranasal sinuses: As visualized are clear. Mastoid air cells: Well pneumatized. Calvarium and scalp: Skull is intact with no soft tissue edema or swelling. CT/CT head wo con* [id number] IMPRESSION: 1. No acute intracranial hemorrhage or edema. 2. Mild cerebral and cerebellar atrophy and small vessel disease. 3. No skull fracture.
--- NOTE | 2024-11-03 14:56 | XRR_ITS ---
PROCEDURE INFORMATION: Exam: XR Left Wrist Exam date and time: 11/03/2024 3:20 PM Age: 84 years old Clinical indication: Injury or trauma; Fall; Blunt trauma (contusions or hematomas); Wrist; Left TECHNIQUE: Imaging protocol: Radiologic exam of the left wrist. Views: 3 or more views. COMPARISON: US soft tissue/extremity [id number] 11/01/2022 2:51 PM FINDINGS: Bones/joints: Nondisplaced transverse fracture of the distal radial metaphysis. No definite intra-articular extension. No dislocation. Moderate to advanced degenerative changes of the 1st CMC joint Soft tissues: Normal. XR/XR wrist LT min 3V* [id number] IMPRESSION: Nondisplaced fracture of the distal radius
--- NOTE | 2024-11-03 14:56 | CT_ITS ---
WS: [id number] CT CERVICAL SPINE HISTORY: fall TECHNIQUE: Contiguous 2.0 mm axial imaging performed through the entire cervical spine. Sagittal and coronal reformats also performed. All CT scans at [facility] use at least one of these dose optimization techniques: automated exposure control; mA and/or kV adjustment per patient size (includes targeted exams where dose is matched to clinical indication); or iterative reconstruction. DLP: 1426.03 mGy.cm COMPARISON: 03/18/2020 Mild curvature cervical spine. Mild increase in lordosis. Disc spaces are narrowed and desiccated. Small hypertrophic osteophytes. Craniocervical junction is normal. Predental space is narrowed. C2-C3: Normal. C3-C4: Osteophytic ridging and facet arthritis. C4-C5: Mild bilateral facet arthritis and foraminal stenosis. C5-C6: Osteophytic ridging and facet arthritis. C6-C7: Mild osteophytic ridging and facet arthritis. C7-T1: Normal. Paraseptal emphysematous changes at the lung apices. Similar to 03/18/2020. CT/CT cervical spin wo con* [id number] IMPRESSION: 1. No acute cervical spine fracture. 2. Facet joint fusion at C2-3. 3. Cervical spondylosis.
--- NOTE | 2024-11-03 14:59 | W.ED.FALL ---
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 He states when he fell he landed on his back he also hit his head and his left wrist complains left wrist pain he has a headache, neck pain and lower back pain rates his pain an 8 out of 10 he denies any other injuries with the fall. Denies any loss consciousness Associated symptoms-after fall: Reports headache(s) and neck pain; Denies abdominal pain or chest pain Related Data Home Medications ?Medication ?Instructions ?Recorded ?Confirmed aspirin 81 mg tablet,delayed 81 mg PO DAILY 11/24/19 11/03/24 release (Adult Aspirin Regimen) omeprazole 20 mg capsule,delayed 20 mg PO DAILY 11/24/19 11/03/24 release ezetimibe 10 mg tablet 10 mg PO DAILY 05/14/23 11/03/24 sildenafil 100 mg tablet 100 mg PO PRN PRN sexual activity 05/14/23 11/03/24 venlafaxine 75 mg capsule,extended 75 mg PO DAILY 10/20/24 11/03/24 release 24 hr amitriptyline 25 mg tablet 25 mg PO DAILY 11/03/24 11/03/24 atorvastatin 40 mg tablet 40 mg PO DAILY 11/03/24 11/03/24 clonazepam 1 mg tablet 1 mg PO DAILY 11/03/24 11/03/24 gabapentin 300 mg capsule 300 mg PO TID 11/03/24 11/03/24 Previous Rx's ?Medication ?Instructions ?Recorded carbidopa 25 mg-levodopa 100 mg 1 tab PO TID #360 tabs 04/29/24 tablet topiramate 50 mg tablet See Rx Instructions .Route 04/29/24 .COMPLEX #90 tabs prednisone 5 mg tablet See Rx Instructions .Route 08/19/24 .COMPLEX #90 tabs venlafaxine 150 mg 150 mg PO DAILY #90 caps 09/13/24 capsule,extended release 24 hr (Effexor XR) hydrocodone 5 mg-acetaminophen 325 1 tab PO Q6H PRN pain #14 tabs 11/03/24 mg tablet Allergies Allergy/AdvReac Type Severity Reaction Status Date / Time No Known Allergies Allergy Verified 10/20/24 11:25 Review of Systems Const: Denies: fever(s), chills, body aches or change in appetite ENMT: Denies: throat pain or dental pain Card: Denies: chest pain Resp: Denies: dyspnea GI: Denies: abdominal pain, nausea, vomiting or diarrhea Musc: Reports: neck pain and back pain Skin/Breast: Denies: rash Neuro: Reports: headache(s) PFSH ED PFSH: Medical History Congenital blindness Pneumothorax Detached retina Blindness Erectile dysfunction Stroke Parkinson disease Surgical History Hx laparoscopic cholecystectomy 05/14/23 Dr. Fay H/O transurethral destruction of bladder lesion Family History Father , 70 CAD (coronary artery disease) Stroke Mother , 84 Stroke Social History Smoking and tobacco/nicotine status: never used tobacco/nicotine Alcohol intake: never Substance/Drug Use: never Marital status: Life Partner Current occupational status: retired Physical Exam Const: COMMON NORMALS: no acute distress, patient oriented x3 and healthy appearing HENMT: COMMON NORMALS: normocephalic HEAD & SCALP: normocephalic OTHER: Posterior scalp tenderness Eye: COMMON NORMALS: conjunctivae normal CONJUNCTIVA: Yes conjunctivae normal Neck/C-Spine: OTHER: Posterior neck tenderness Chest: COMMONS NORMALS: normal inspection of the chest and normal palpation of entire chest wall Resp: COMMON NORMALS: normal respiratory effort, No retractions, No use of accessory muscles and clear to auscultation bilaterally AUSCULTATION: clear to auscultation bilaterally Cardio: COMMON NORMALS: regular rate RATE: regular rate GI: COMMON NORMALS: Normal to inspection, nondistended, normoactive bowel sounds present, Soft to palpation, non-tender and no masses PALPATION: Yes Soft to palpation Back/Pelvis: OTHER: Tenderness noted to the lumbar spine along with lower thoracic spine Extremity: COMMON NORMALS: normal to inspection and full ROM Neuro: COMMON NORMALS: patient oriented x3, moves all extremities and no focal motor deficits Psych: COMMON NORMALS: mental status grossly normal, Normal thought process present and cooperative THOUGHT PROCESS: Normal thought process present Skin: COMMON NORMALS: no rashes or lesions noted and no wounds GENERAL SKIN EXAM: no rashes or lesions noted Course Vital Signs: Vital signs: Vital Signs Temperature 98.2 F 11/03/24 13:49 Pulse Rate 96 11/03/24 13:49 Respiratory Rate 16 11/03/24 13:49 Blood Pressure 144/82 11/03/24 13:49 Pulse Oximetry 94 11/03/24 13:49 Oxygen Delivery Me thod Room Air 11/03/24 13:49 MDM - Fall Medical Decision Making Patient presents after a fall he does have an L2 compression fracture along with a wrist fracture no other fractures are noted he is ambulatory here did place him in a TLSO brace and a splint he is get follow-up with Ortho and return if worsening Medical Records I reviewed the patient's medical records. Lab Data Radiology Impressions Cervical Spine CT 11/03/24 14:56 IMPRESSION: 1. No acute cervical spine fracture. 2. Facet joint fusion at C2-3. 3. Cervical spondylosis. Head CT 11/03/24 14:56 IMPRESSION: 1. No acute intracranial hemorrhage or edema. 2. Mild cerebral and cerebellar atrophy and small vessel disease. 3. No skull fracture. Lumbar Spine CT 11/03/24 14:56 IMPRESSION: 1. Acute, 10% compression fracture L2 without retropulsion. 2. No additional acute fracture. 3. Mild subarticular recess encroachment L2-3 and L3-4. 4. L4-5: Mild central and bilateral subarticular recess stenosis due to broad-based disc bulging and a central disc protrusion. 5. L5-S1: Central disc protrusion with contact on the S1 nerve roots. Thoracic Spine CT 11/03/24 14:56 IMPRESSION: 1. No acute thoracic spine fracture 2. Mild anterior wedging of T2 and T3 is chronic. All radiology interpretation(s) finalized by discharge Discharge Plan Discharge Patient Disposition: Home Clinical Impression: Left wrist fracture Qualifiers: Encounter type: initial encounter Fracture type: closed Qualified Code(s): S62.102A - Fracture of unspecified carpal bone, left wrist, initial encounter for closed fracture Compression fracture of lumbar vertebra Qualifiers: Encounter type: initial encounter Lumbar vertebra fracture level: L2 Qualified Code(s): S32.020A - Wedge compression fracture of second lumbar vertebra, initial encounter for closed fracture Condition: Stable Prescriptions: New hydrocodone-acetaminophen 5-325 mg tablet 1 tab PO Q6H PRN (Reason: pain) Qty: 14 0RF No Action aspirin [Adult Aspirin Regimen] 81 mg tablet,delayed release (DR/EC) 81 mg PO DAILY Rx Instructions: PT BROUGTH IN A MEDICATION LIST omeprazole 20 mg capsule,delayed release(DR/EC) 20 mg PO DAILY Rx Instructions: PT BROUGTH IN A MEDICATION LIST carbidopa-levodopa 25-100 mg tablet 1 tab PO TID Qty: 360 3RF Rx Instructions: 2 in am, 1 noon and 1 in pm topiramate 50 mg tablet See Rx Instructions .ROUTE .COMPLEX Qty: 90 3RF Dose Instruction: TAKE 1 TABLET BY MOUTH DAILY Rx Instructions: TAKE 1 TABLET BY MOUTH DAILY prednisone 5 mg tablet See Rx Instructions .ROUTE .COMPLEX Qty: 90 1RF Dose Instruction: TAKE 1 TABLET BY MOUTH EVERY DAY Rx Instructions: TAKE 1 TABLET BY MOUTH EVERY DAY venlafaxine 75 mg capsule,extended release 24hr 75 mg PO DAILY venlafaxine [Effexor XR] 150 mg capsule,extended release 24hr 150 mg PO DAILY Qty: 90 3RF sildenafil 100 mg tablet 100 mg PO PRN PRN (Reason: sexual activity) Rx Instructions: 1 hour before intercourse on empty stomach. NO NITROGLYCERIN! ezetimibe 10 mg tablet 10 mg PO DAILY atorvastatin 40 mg tablet 40 mg PO DAILY clonazepam 1 mg tablet 1 mg PO DAILY amitriptyline 25 mg tablet 25 mg PO DAILY gabapentin 300 mg capsule 300 mg PO TID Discharge Orders: Discharge ED (Routine); Ordered 11/03/24 Ordered By: [place] [facility] Referrals: Donald Quintero DO [Physician] - 4-7 days James Barroso MD [Primary Care Provider] - Discharge Diet: Advance as tolerated Discharge Activity: Resume usual activity Patient Instructions: Wrist Fracture in Adults (ED), Thoracolumbar Fracture (ED), Opioid Safety Print Language: Ivorian Coding Level of Care Code ED Registered Nurse [facility] for [facility] Alvarado
[2024-11-03] MEDS: HYDROcodone-acetaminophen 5-325 mg Tablet 1 TAB PO (15:00)
--- NOTE | 2024-11-03 15:00 | XRR_ITS ---
PROCEDURE INFORMATION: Exam: XR Pelvis Exam date and time: 11/03/2024 3:17 PM Age: 84 years old Clinical indication: Injury or trauma; Fall; Blunt trauma (contusions or hematomas); Bilateral; Pelvic region TECHNIQUE: Imaging protocol: Radiologic exam of the pelvis. Views: 1 or 2 view. COMPARISON: CT abdomen pelvis w con* [id number] 05/13/2023 6:38 PM FINDINGS: Bones/joints: No acute fracture or dislocation. Soft tissues: Unremarkable. Vasculature: Calcified pelvic phleboliths. Other findings: Moderate stool over the rectum and visualized colon. XR/XR pelvis 1-2V* [id number] IMPRESSION: No acute osseous findings.
--- NOTE | 2024-11-04 09:33 | DCPLANNER ---
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 He states when he fell he landed on his back he also hit his head and his left wrist complains left wrist pain he has a headache, neck pain and lower back pain rates his pain an 8 out of 10 he denies any other injuries with the fall. Patient presents after a fall he does have an L2 compression fracture along with a wrist fracture no other fractures are noted he is ambulatory here did place him in a TLSO brace and a splint he is get follow-up with Ortho and return if worsening
== END 2024-11-03 16:37 | disposition home or self-care (01) ==
PROVIDERS: Emergency Provider Emergency Medicine; PCP Family Medicine
DX: S62.102A Fracture of unspecified carpal bone, left wrist, initial encounter for closed fracture (principal); S32.020A Wedge compression fracture of second lumbar vertebra, initial encounter for closed fracture; Z79.82 Long term (current) use of aspirin; W19.XXXA Unspecified fall, initial encounter
CPT/HCPCS: 29125; 70450; 72125; 72128; 72131; 72170; 73110; 97760; 99284; 99291; J9999; L0460

== ENCOUNTER → 2024-11-05 14:04 | Outpatient (BNVA) | payer MEDICARE, SELFPAY | PROVIDERS: PCP Family Medicine; Visit Provider Orthopaedic Surgery | DX: S32.020A Wedge compression fracture of second lumbar vertebra, initial encounter for closed fracture (principal); X58.XXXA Exposure to other specified factors, initial encounter | CPT/HCPCS: 72100; 99203 ==

== ENCOUNTER 2024-11-05 14:56 | Outpatient (CLI) | payer MEDICARE, SELFPAY | END 2024-11-05 14:57 | disposition home or self-care (01) | LOC: SOT 14:57 | PROVIDERS: PCP Family Medicine; Visit Provider Orthopaedic Surgery | DX: Z46.89 Encounter for fitting and adjustment of other specified devices (principal); S52.502D Unspecified fracture of the lower end of left radius, subsequent encounter for closed fracture with routine healing; W19.XXXD Unspecified fall, subsequent encounter | CPT/HCPCS: L3982 ==

== ENCOUNTER → 2024-11-09 11:17 | Outpatient (BNVA) | payer MEDICARE, SELFPAY | PROVIDERS: PCP Family Medicine; Visit Provider Orthopaedic Surgery | DX: S62.102A Fracture of unspecified carpal bone, left wrist, initial encounter for closed fracture (principal); X58.XXXA Exposure to other specified factors, initial encounter | CPT/HCPCS: 73110; 99214 ==

== ENCOUNTER → 2024-11-24 14:32 | Outpatient (BNVA) | payer MEDICARE, SELFPAY | PROVIDERS: PCP Family Medicine; Visit Provider Orthopaedic Surgery | DX: M54.9 Dorsalgia, unspecified (principal); S62.109A Fracture of unspecified carpal bone, unspecified wrist, initial encounter for closed fracture | CPT/HCPCS: 72100; 73110; 99213 ==

== ENCOUNTER → 2024-12-15 15:43 | Outpatient (BNVA) | payer MEDICARE, SELFPAY | PROVIDERS: PCP Family Medicine; Visit Provider Orthopaedic Surgery | DX: S52.502A Unspecified fracture of the lower end of left radius, initial encounter for closed fracture (principal); M54.9 Dorsalgia, unspecified; X58.XXXA Exposure to other specified factors, initial encounter | CPT/HCPCS: 72100; 99213 ==

== ENCOUNTER → 2024-12-17 13:27 | Outpatient (BNVA) | payer MEDICARE, SELFPAY | PROVIDERS: PCP Family Medicine; Visit Provider Orthopaedic Surgery | DX: S52.502D Unspecified fracture of the lower end of left radius, subsequent encounter for closed fracture with routine healing (principal); S69.92XD Unspecified injury of left wrist, hand and finger(s), subsequent encounter; X58.XXXD Exposure to other specified factors, subsequent encounter | CPT/HCPCS: 73110; 99213 ==

== ENCOUNTER → 2024-12-29 14:51 | Outpatient (BNVA) | payer MEDICARE, SELFPAY | PROVIDERS: PCP Family Medicine; Visit Provider Orthopaedic Surgery | DX: S52.532D Colles' fracture of left radius, subsequent encounter for closed fracture with routine healing (principal); X58.XXXD Exposure to other specified factors, subsequent encounter | CPT/HCPCS: 99213 ==

== ENCOUNTER → 2025-01-26 13:25 | Outpatient (BNVA) | payer MEDICARE, SELFPAY | PROVIDERS: PCP Family Medicine; Visit Provider Orthopaedic Surgery | DX: M54.9 Dorsalgia, unspecified (principal) | CPT/HCPCS: 72100; 99213 ==

== ENCOUNTER → 2025-02-15 08:26 | Outpatient (BNVA) | payer MEDICARE, SELFPAY | PROVIDERS: PCP Family Medicine; Visit Provider Specialist | DX: I63.9 Cerebral infarction, unspecified (principal); G62.9 Polyneuropathy, unspecified; H54.7 Unspecified visual loss; H54.0X55 Blindness right eye category 5, blindness left eye category 5; G20.A2 Parkinson's disease without dyskinesia, with fluctuations; G20.A1 Parkinson's disease without dyskinesia, without mention of fluctuations; G43.711 Chronic migraine without aura, intractable, with status migrainosus | CPT/HCPCS: 99214 ==

== ENCOUNTER 2025-03-25 10:03 | Outpatient (CLI) | payer MEDICARE, SELFPAY ==
--- NOTE | 2025-03-25 10:13 | XRR_ITS ---
PROCEDURE INFORMATION: Exam: XR Chest Exam date and time: 03/25/2025 10:21 AM Age: 85 years old Clinical indication: Prior surgery; Surgery date: 6+ months; Surgery type: Lung lobe removal, lung repair; Cough x one month. PT has coughing fits while inhaling. ; Additional info: Acute bronchitis/cough TECHNIQUE: Imaging protocol: Radiologic exam of the chest. Views: 2 views. COMPARISON: CR (CHEST, ) 05/17/2024 11:46 AM FINDINGS: Lungs: Unremarkable. No consolidation. Pleural spaces: Unremarkable. No pleural effusion. No pneumothorax. Heart/Mediastinum: See Vasculature finding. Vasculature: Mild cardiomegaly and uncoiling of the thoracic aorta. Bones/joints: Unremarkable. XR/XR chest 2V* [id number] IMPRESSION: No acute findings.
== END 2025-03-25 10:04 | disposition home or self-care (01) ==
PROVIDERS: PCP Family Medicine; Visit Provider Family Medicine
DX: J20.9 Acute bronchitis, unspecified (principal); R05.8 Other specified cough; I51.7 Cardiomegaly; R93.89 Abnormal findings on diagnostic imaging of other specified body structures
CPT/HCPCS: 71046

== ENCOUNTER 2025-07-07 13:22 | Outpatient (CLI) | payer MEDICARE, SELFPAY ==
--- NOTE | 2025-07-07 13:35 | XRR_ITS ---
PROCEDURE INFORMATION: Exam: XR Left Hip Exam date and time: 07/07/2025 1:49 PM Age: 85 years old Clinical indication: Hip pain; Left hip; Additional info: Left hip pain TECHNIQUE: Imaging protocol: Radiologic exam of the left hip. Views: 2 or 3 views hip with pelvis when performed. COMPARISON: CR XR pelvis 1-2V* [id number] 11/03/2024 3:17 PM FINDINGS: Bones/joints: Mild degenerative changes within the hip including mild joint space narrowing and early osteophyte formation. No fracture. The trabecular stress markings normal. Degenerative changes are present within the visualized portions of the caudal aspect of the lumbar spine. Soft tissues: Unremarkable. XR/XR hip LT 2-3V wo/w pel* [id number] IMPRESSION: Mild degenerative changes within the left hip.
--- NOTE | 2025-07-07 13:35 | XRR_ITS ---
PROCEDURE INFORMATION: Exam: XR Lumbosacral Spine Exam date and time: 07/07/2025 1:49 PM Age: 85 years old Clinical indication: Low back pain; Additional info: Lumbar back pain TECHNIQUE: Imaging protocol: Radiologic exam of the lumbosacral spine. Views: 4 or 5 views. COMPARISON: CR XR lumbar spine 2-3V* [id number] 01/26/2025 1:38 PM FINDINGS: Bones/joints: Mild degenerative disc disease reflected as a decrease in disc space height and anterior endplate osteophytosis. No spondylolisthesis. No pars defect. Mild degenerative listhesis of L4 with respect to L5 of approximately 4 mm. Moderate facet arthropathy L3-L4 and L4-L5. Compression fracture involving the anterior and middle columns of L2. Previously noted. Soft tissues: Unremarkable. Vasculature: Calcification of the aorta. XR/XR lumbar spine min 4V [id number] IMPRESSION: 1. Mild degenerative disc disease reflected as a decrease in disc space height and anterior endplate osteophytosis. 2. Mild degenerative listhesis of L4 with respect to L5 of approximately 4 mm. 3. Compression fracture involving the anterior and middle columns of L2. Previously noted.
== END 2025-07-07 13:23 | disposition home or self-care (01) ==
PROVIDERS: PCP Family Medicine; Visit Provider Family Medicine
DX: M51.360 Other intervertebral disc degeneration, lumbar region with discogenic back pain only (principal); M47.816 Spondylosis without myelopathy or radiculopathy, lumbar region; M25.78 Osteophyte, vertebrae; S32.029S Unspecified fracture of second lumbar vertebra, sequela; X58.XXXS Exposure to other specified factors, sequela; M89.9 Disorder of bone, unspecified
CPT/HCPCS: 72110; 73502